=== PATIENT | female | born 1940 | race Caucasian/White ===

== ENCOUNTER 2017-02-20 19:07 | Inpatient (IN) | payer OTHER ==
--- NOTE | ~2017-02-20 | CN ---
Consultation Report [facility] [address] [place]. [address] NAME: ALENA GUERRIER : 39 STATUS : ADM IN PAT#: [id number] AGE: 76 ADM/REG DATE : 02/20/17 MR#: [id number] REPORT SERV DATE: 02/21/17 DICTATED BY: MAGALIE HALL JR. DATE: 02/21/17 REPORT STATUS : Draft TRANSCRIBED BY: MODJonn DATE: 02/21/17 CARDIOLOGY CONSULT DATE OF CONSULTATION: 02/21/2017 REASON FOR CONSULTATION: Regarding acute inferior ST-elevation NH in the setting of life- threatening hemorrhage with large pelvic hematoma, after presenting with a pulseless left leg status post old femoral-popliteal bypass. HISTORY OF PRESENT ILLNESS: A 76-year-old white female, former cigarette smoker with history of treated hypertension, hyperlipidemia, with a carotid disease and severe peripheral arterial disease status post remote synthetic graft left femoral-popliteal by Dr. Lopez Lange. She apparently presented to [facility] with a left leg with pain, numbness, and cold extremity. She was transferred downtown. Dr. Moreno attempted reopening the occluded fem-pop graft on the left. Right groin access. Difficult arterial access. Catheter was finally placed in the left superficial femoral artery and tPA infused. She was transferred back to the CVICU, but became hypotensive. Hematocrit dropped to 17, and she was taken back to the operating room to evacuate a large pelvic hematoma with treatment of the bleeding site with a covered stent in the left external iliac artery. Angioplasty was performed down the left lower extremity. She is currently pulseless in the left extremity. Earlier in the day on the monitor, ST changes were noted. Prior to her emergency reoperation, Cardiology consult was obtained. We requested an EKG on arrival back in the CVICU as well as a troponin. The troponin was 0.2 initially and the EKG showed changes of an acute inferior ST-elevation NH. She has had labile blood pressures with hypotension and hypertension, and has been alternating again with sinus rhythm and regular SVT. Available laboratory earlier included a sodium of 126, potassium of 3.2, chloride of 84, bicarb 19. BUN and creatinine 23 and 2.0, potassium 3.1, magnesium 1.4. ALLERGIES AND HOME MEDICATIONS: Reviewed. FAMILY HISTORY: Not obtainable. SOCIAL HISTORY: A remote history of cigarette smoking. No recreational drugs. does not know whether or not she has seen a manager water wastewater in the past. She is followed by Dr. Tian Calle for primary care. Portable echocardiogram bedside unit shows a normal size right ventricle with a normally pau interventricular septum, posterior wall appears to be hypokinetic initially. Formal echo ordered. Consultation Report [address] [place]. [address] NAME: ALENA GUERRIER : 39 STATUS : ADM IN [facility]#: [id number] AGE: 76 ADM/REG DATE : 02/20/17 MR#: [id number] REPORT SERV DATE: 02/21/17 DICTATED BY: MAGALIE HALL JR. DATE: 02/21/17 REPORT STATUS : Draft TRANSCRIBED BY: EMI DATE: 02/21/17 PHYSICAL EXAMINATION: Blood pressure 120/54, pulse alternating between 70 and 150. Intake exceeds output via significant amount over the last several hours. HEENT: No xanthelasma. NECK: No JVD at 30 degrees, no thyromegaly, no carotid bruit. LUNGS: Clear to auscultation and percussion. COR: No thrills, heaves, normal S1, S2. No gallop. No rub. No murmur. ABD: Soft, nontender, no hepatosplenomegaly, no mass. EXT: Pulseless left foot Doppler. Additional rhythm strip show AV dissociation with junctional escape. MS: Back without spine or costovertebral angle tenderness. NEURO: Symmetric findings. DISCUSSION: Acute inferior ST-elevation NH. In the setting of previous hemorrhagic shock. TPA, etc. She is not a candidate for invasive cardiac filling station laborer procedure at this point. Conservative treatment of acute inferior infarction recommended, watching for AV conduction abnormalities etc. Bedside echocardiogram. Serial cardiac enzymes and EKGs. Prognosis is dismal. Thank you for this consultation. ELLYN/EMI Magalie Hall Jr., M.D. / [id number] CC: Cally Kim Jr., M.D.
--- NOTE | ~2017-02-20 | OP ---
Record Of Operation [facility] [address] [place]. [address] NAME: ALENA GUERRIER : 39 STATUS : ADM IN PAT#: [id number] AGE: 76 ADM/REG DATE : 02/20/17 MR#: [id number] REPORT SERV DATE: 02/23/17 DICTATED BY: CORBY MORENO JR. DATE: 02/23/17 REPORT STATUS : Draft TRANSCRIBED BY: EMI DATE: 02/23/17 DATE OF PROCEDURE: 02/23/2017 PREOPERATIVE DIAGNOSIS: Gangrene of left leg. POSTOPERATIVE DIAGNOSIS: Gangrene of left leg. OPERATION: Left above-knee amputation. SURGEON: Corby Moreno M.D. HISTORY: This is a 76-year-old white female, who has been through a series of three operations over the last several days in order to evaluate and effort to try to salvage her left leg. The patient has had a number of cardiovascular issues including an inferior ME. The left lower leg has gangrenous changes below the knee. She was brought back today on a ventilator for this operation. PROCEDURE: The patient was placed on the operating room table. Endotracheal tube was connected to a ventilator. The left leg was prepped and draped in the usual sterile manner. Standard anterior and posterior flaps were drawn and cut with a knife. The underlying tissues were cut primarily with cautery. Although all tissues appeared to be alive, the tissues bled very little. The femoral-popliteal bypass graft in the left side was identified. It was obviously thrombosed. Where we went across the graft, there was a stent inside the graft. The femoral vein was suture ligated. The sciatic nerve was cut and injected with Marcaine. The periosteum was pushed off the bone. The bone was then cut with a power saw. The wound was thoroughly irrigated. The fascia was closed with 2-0 Vicryl. There was no need for drain. Skin was closed with a running 2-0 nylon. The patient tolerated the procedure remarkably well considering everything. Intraoperative blood loss was no more than 100 mL. There were no intraoperative complications. DF/EMI Corby Moreno Jr., M.D. / [id number] CC: Cally Kim Jr., M.D.
--- NOTE | ~2017-02-20 | OP ---
Record Of Operation [facility] [address] [place]. [address] NAME: ALENA GUERRIER : 39 STATUS : ADM IN PAT#: [id number] AGE: 76 ADM/REG DATE : 02/20/17 MR#: [id number] REPORT SERV DATE: 02/21/17 DICTATED BY: CORBY HUGGINS JR. DATE: 02/21/17 REPORT STATUS : Draft TRANSCRIBED BY: MODJonn DATE: 02/21/17 DATE OF PROCEDURE: 02/21/2017 PREOPERATIVE DIAGNOSIS: Profound ischemia of left leg, status post placement of tPA catheter last night. POSTOPERATIVE DIAGNOSIS: Profound ischemia of left leg, status post placement of tPA catheter last night. OPERATION: Left leg arteriogram through tPA catheter, attempted placement of cover stent via right common femoral artery approach, puncture of left common femoral artery using SonoSite machine, retrograde arteriogram, placement of 6 x 50 Viabahn covered stent across the left external iliac artery, dilation of left common iliac artery, left external iliac artery, left common femoral artery, left superficial femoral artery, and left popliteal artery using 5 x 150 balloon. SURGEON: Corby Huggins M.D. HISTORY: This lady had a tPA catheter placed last night. As the night went on, she developed a low blood pressure and an increasing pulse. Her hematocrit trended to drop. She had pain in her left lower quadrant compatible with a rectus sheath hematoma. She was brought back to the operating room this morning in hopes that we could place a covered stent to stop bleeding from the rectus sheath hematoma and also dilate the left leg. PROCEDURE IN DETAIL: The patient was placed on the operating room table. We started off with a MAC anesthetic. It was later changed to a general endotracheal anesthetic. Both groins and the left leg were prepped and draped in the usual sterile manner. I initially shot an arteriogram through the tPA catheter that went down the left leg. The distal popliteal artery appeared to be open. I then had difficulty pulling the tPA catheter out of the sheath in the right groin because it had to go through a pair of kissing proximal common iliac artery stents that had been previously placed by someone else. I then tried to use the UF catheter to get a wire to go down into the left iliac system and ultimately down the left leg. Because of the height of both kissing iliac stents, it became very difficult to get a sheath to track over a wire that was down into the left iliac system. After much frustration trying to get that to happen, I then decided to puncture the left common femoral artery with the SonoSite machine and place a wire going in a retrograde direction up toward the aorta. This was done rather easily. A V18 wire was then placed up into the aorta. We had done a previous arteriogram that had suggested a blush in the left lower quadrant. It appeared that this blush was coming off a branch of the left external iliac artery such as the inferior epigastric artery. I then placed a 6 x 50 Viabahn covered stent along the external iliac artery which seemed to help the rapidity of the blush showing up on arteriogram. Nevertheless, we did then figure out that the internal iliac artery on the left was feeding this blush also. We then went back over to the right side of the pelvis. I then did an arteriogram to look at the right internal iliac artery. It was basically occluded. Therefore, I was hesitant to cover up the origin of the left internal iliac artery for fear that the pelvis would have profound ischemia. I then dilated the stent in Record Of Operation [facility] [id number] [place]. [address] NAME: ALENA GUERRIER : 39 STATUS : ADM IN PAT#: [id number] AGE: 76 ADM/REG DATE : 02/20/17 MR#: [id number] REPORT SERV DATE: 02/21/17 DICTATED BY: CORBY HUGGINS JR. DATE: 02/21/17 REPORT STATUS : Draft TRANSCRIBED BY: MODL DATE: 02/21/17 the left common iliac artery, so that we could maybe go from the right iliac artery over to the left. We managed to finally get this done and slid a 6, 45 Terumo sheath over to the left external iliac artery. I then inserted a 5 x 150 balloon and dilated everything including the distal popliteal artery, the entire superficial femoral artery, the common femoral artery, and both the left common and external iliac arteries with the same 5 x 150 balloon. The followup arteriogram showed better flow down into the distal popliteal artery and filling out a peroneal artery which was really the only branch to the left foot. We then shot one more arteriogram to look at the blush coming from the left internal iliac artery. The blush only showed up as the contrast went down to very distal branches. I decided to leave a sheath in the left groin in case the left internal iliac artery had to be covered up later on this afternoon, depending on the patient's blood pressure and hematocrit levels. The sheath in the right groin was pulled and digital pressure was applied for 15 minutes. 2000 units of heparin was given during the case. The patient tolerated the procedure reasonably poorly considered the fact that her blood pressure remained down, she remained on pressors, she appeared to maybe have aspiration pneumonia, and had to be intubated during this case. She was taken back to SICU in critical condition. The estimated blood loss from my aspect of the case was not more than 200 mL. The was informed about all details of the case. DF/MODL Corby Huggins Jr., M.D. / [id number] CC: Corby Huggins Jr., M.D.
--- NOTE | ~2017-02-20 | OP ---
Record Of Operation [facility] [address] [place]. [address] NAME: ALENA GUERRIER : 39 STATUS : ADM IN [facility]#: [id number] AGE: 76 ADM/REG DATE : 02/20/17 MR#: [id number] REPORT SERV DATE: 02/21/17 DICTATED BY: CORBY MORENO JR. DATE: 02/20/17 REPORT STATUS : Draft TRANSCRIBED BY: MODJonn DATE: 02/20/17 DATE OF PROCEDURE: 02/20/2017 PREOPERATIVE DIAGNOSIS: Acute ischemia of left leg. POSTOPERATIVE DIAGNOSIS: Acute ischemia of left leg. OPERATION: Arteriographic puncture of right common femoral artery using SonoSite machine, flush aortogram, left leg arteriogram, placement of tPA catheter and left superficial femoral and popliteal arteries. SURGEON: Corby Moreno M.D. HISTORY: This is a 76-year-old white female with an extensive past medical history of PVD. She actually had a left femoral-popliteal bypass graft done with [place] by Dr. Lopez Lange some 15 years ago. She had an extensive operation done one year ago by Dr. Ender Ahmadi. The patient never came back for followup. She is only on aspirin as an anticoagulant. She said that she began having severe pain in her left leg at 4:00 p.m. on the day of admission. She was transferred in urgently. She had no Doppler flow in her left foot. She basically could not move her toes. She had much decreased sensation. DESCRIPTION OF PROCEDURE: The patient was placed on the operating room table. Both groins and the left leg were prepped and draped in the usual sterile manner. I had to mason hard with an ultrasound machine to find anything that pulsated in the right groin. On the medial side of the right groin, I finally found what appeared to be an artery. I then punctured this and managed to get a wire up into the aorta with difficulty. The wire did not want to go up the aorta because of extensive aortic disease in the distal aorta. I ultimately got the UF catheter to track the wire. I then did a flush aortogram. The distal aorta is opened. 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 The aorta is very irregular. Both common iliac arteries are irregular. Both external iliac arteries are irregular. She has bilateral iliac stents. I then pulled the UF catheter down the aortic bifurcation area. I then was able to feed a Glidewire down into the left groin. I then exchanged this for a Bard 2 catheter. I then naturally got a Glidewire to go into the left femoral-popliteal bypass graft. I then tracked all the way down through the graft to the distal popliteal artery. The femoral-popliteal bypass graft was completely occluded. The left common femoral artery was very diseased. The profunda femoral artery is open. There was a stent in the distal aspect of the femoral-popliteal bypass graft. There seems to be only one vessel runoff to the left foot. I then managed to run a 50 cm infusion length TPA catheter over the guidewire. The catheter was parked in the distal popliteal artery. The stylet was then inserted into the catheter. The distal catheter was then hooked up to TPA. The side port was hooked up to heparin. The catheter was sutured into place. The patient tolerated the procedure well and taken back to the recovery room in serious condition. There were no intraoperative complications. Estimated blood loss was negligible. Record Of Operation [address] [address] NAME: ALENA GUERRIER : 38 STATUS : ADM IN [facility]#: [id number] AGE: 76 ADM/REG DATE : 02/20/17 MR#: [id number] REPORT SERV DATE: 02/21/17 DICTATED BY: CORBY MORENO JR. DATE: 02/20/17 REPORT STATUS : Draft TRANSCRIBED BY: EMI DATE: 02/20/17 DF/EMI Corby Morneo Jr., M.D. / [id number] CC: Corby Moreno Jr., M.D.
--- NOTE | ~2017-02-20 | DS ---
Discharge Summary [facility] [address] [place]. [address] NAME: ALENA GUERRIER : 39 STATUS : DIS IN PAT#: [id number] AGE: 76 ADM/REG DATE : 02/20/17 MR#: [id number] REPORT SERV DATE: 03/15/17 DICTATED BY: CORBY MORENO JR. DATE: 03/14/17 REPORT STATUS : Draft TRANSCRIBED BY: EMI DATE: 03/14/17 Data Collection from hospitalization DISCHARGE DIAGNOSIS(ES): 1. Acute ischemia of the left leg. 2. Hypertension. 3. Peripheral vascular disease. 4. Hyperlipidemia. 5. Carotid artery disease. 6. Gastroesophageal reflux. 7. Acute inferior ST-elevation myocardial infarction. CONSULTATIONS: Elias Hall M.D.; Sky Caal M.D.; Jay Ramesh M.D. PROCEDURES PERFORMED: 1. Arteriographic puncture of right common femoral artery using SonoSite machine/aortogram, left leg arteriogram, placement of tPA catheter and left superficial femoral and popliteal artery, 02/20/2017. 2. Left leg arteriogram through tPA catheter, attempted placement of covered stent via right common femoral artery approach, puncture of left common femoral artery using SonoSite machine, retrograde arteriogram, placement of 6 x 50 Viabahn covered stent across the left external iliac artery, dilation of left common iliac artery, left external iliac artery, left common femoral artery, left superficial femoral artery, and left popliteal artery using 5 x 150 balloon, 02/21/2017. 3. Aortogram, placement of a covered stent across the proximal aspect of the right femoral- popliteal bypass graft (6 x 50), placement of covered stent over the origin of the left internal iliac artery (7 x 50), 02/21/2017. 4. Right chest tube placement, 02/22/2017. 5. 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 6. Carotid blood flow study, 02/22/2017. 7. Renal ultrasound, 02/22/2017. PATHOLOGY: Left lower extremity above the knee amputation -- severe peripheral vascular disease with accompanying ischemic damage. MEDICATIONS: Norvasc 5 mg daily as instructed; aspirin 162 mg every morning; Lipitor 40 mg at bedtime; Cordarone 200 mg once a day; Colace 100 mg at bedtime; Lovenox 30 mg subcutaneously every 24 hours; NovoLog injection insulin as instructed; Lopressor 25 mg twice a day; Protonix 40 mg before breakfast; Charles nasal spray, two sprays in each nostril three times a day; Desyrel 50 mg at bedtime; Venelex one application topically as needed; fentanyl 25-50 mg IV every three hours as needed; nitroglycerin 0.4 mg sublingually as needed; Zofran 4 mg IV every six hours as needed; Percocet 5/325 one to two tablets every four hours as needed; Charles nasal spray, one spray in each nostril as needed; Ditropan 5 mg twice a day, vitamin B12 at 2500 mcg daily, amiodarone 200 mg daily, Imdur 30 mg as instructed, Plavix 75 mg daily. CONDITION AT DISCHARGE: Stable. Discharge Summary [address] [address] NAME: ALENA GUERRIER : 39 STATUS : DIS IN PAT#: [id number] AGE: 76 ADM/REG DATE : 02/20/17 MR#: [id number] REPORT SERV DATE: 03/15/17 DICTATED BY: CORBY MORENO JR. DATE: 03/14/17 REPORT STATUS : Draft TRANSCRIBED BY: EMI DATE: 03/14/17 DISPOSITION: The patient was discharged to [facility] on a diabetic/mechanical soft diet with activities as instructed. She would follow up with Dr. Hall 03/30/2017. HOSPITAL COURSE: This is a 76-year-old female who has an extensive past medical history of peripheral vascular disease. She actually had left femoral-popliteal bypass grafts done with [employer] about 15 years ago. She had an extensive operation done one year ago by Dr. Ender Ahmadi. She never came back for followup. She is only on aspirin as an anticoagulant. She stated that she began to have severe pain in her left leg around 4 p.m. on the day of this admission. She was transferred in urgently. She was found to have no Doppler flow in her left foot. She basically could not move her toes. She had much decreased sensation. She was felt to have acute ischemia of the left leg and it was also felt that she would need to undergo surgical intervention. She was admitted to the hospital at this time for further evaluation and treatment. Upon admission, she was taken to the operating room where she underwent the above-mentioned procedure. She tolerated this well. There were no complications. The following day, she was seen by Dr. Elias Hall. He had been asked to see her regarding acute inferior ST- elevation myocardial infarction in the setting of life-threatening hemorrhage with large pelvic hematoma after presenting with a pulseless left leg, status post old femoral- popliteal bypass. Postoperatively, she had been transferred back to the Cardiovascular ICU, but she became hypotensive. Hematocrit dropped to 17. She was taken back to the operating room to evacuate a large pelvic hematoma with treatment of the bleeding sites with a covered stent in the left external iliac artery. Angioplasty was performed on the left lower extremity. She currently was pulseless in the left lower extremity. Earlier in the day on the monitor, her ST changes were noted. Prior to the emergent re-operation, a Cardiology consult was requested. An EKG was requested as well as a troponin. Initially, troponin was 0.2 and EKG showed changes of an acute inferior ST-elevation myocardial infarction. She had had labile blood pressures with hypotension and hypertension and had been alternating again with sinus rhythm and regular supraventricular tachycardia. Creatinine level was 2.0. She was felt to have had an acute inferior ST-elevation myocardial infarction in the setting of previous hemorrhagic shock, tPA, etc. She was not a candidate for invasive cardiac blood bank laboratory technician procedure at this point. Conservative treatment of acute inferior infarction was recommended, watching for AV conduction abnormalities, etc. Bedside echocardiogram would be performed. Serial cardiac enzymes and EKGs would be obtained. The prognosis was felt to be dismal. The patient underwent two surgical interventions within 12 hours. The patient was seen by Dr. Sky Caal. The patient was currently on an amiodarone drip. She had also developed acute blood loss anemia. She was on Dany-Synephrine currently for blood pressure control. She still had no pulses in the right lower extremity. On the , aspirin was added to her regimen. She was off pressors. Platelet count was 80,000. The patient's left leg has no perfusion below the knee. Plans were being made for left above knee amputation to be performed. She was seen in consultation by Dr. Jay Ramesh regarding acute kidney injury with low urine output. Creatinine had risen to 1.97 with potassium of 5.2. She had been initiated on a Bumex infusion due to her low urine output. Her overall prognosis was felt to be poor. She was felt to have multifactorial acute kidney injury, but primarily secondary to shock with creatinine 1.5 to a value of 1.97 with evidence of metabolic acidosis. Acute tubular necrosis likely complicated by SEVEN inhibitor affect possibly by contrast, but unsure if pelvic hematoma contributed with component of obstruction. He Discharge Summary [facility] [address] [place]. [address] NAME: ALENA GUERRIER : 39 STATUS : DIS IN PAT#: [id number] AGE: 76 ADM/REG DATE : 02/20/17 MR#: [id number] REPORT SERV DATE: 03/15/17 DICTATED BY: CORBY MORENO JR. DATE: 03/14/17 REPORT STATUS : Draft TRANSCRIBED BY: EMI DATE: 03/14/17 agreed with Bumex infusion and pressors and fluids. Dialysis therapy would be provided. The patient developed right pneumothorax on x-ray and ultrasound. Carotid blood flow study had been performed as well as a renal ultrasound. Dr. Sky Caal placed a right chest tube. On 02/23/2017, the patient was taken to the operating room where she underwent the above- mentioned procedure. She tolerated this well and there were no complications. Bumex infusion was continued. Creatinine had increased to 2.74 the following day. She had been extubated. Blood pressure and pulse were good. She seemed to be making progress. She denied any shortness of breath. Creatinine had increased to 2.82. Bumex was decreased. On 02/25/2017, she was in no acute distress. She denied any chest pain. Hydralazine was being given as needed. She remained in a normal sinus rhythm. She had brisk urine output. The left above knee amputation looked great. Platelet count was 74,000. On 02/27/2017, blood pressure was stable. She said she was feeling better. She had no chest pain. Her chest tube was in place. She continued to slowly improve. Chest x-ray showed improving pneumothorax. She did have a cough. She was evaluated by Physical Therapy. On 03/01/2017, she was awake and alert. She said she was breathing okay. Chest tube was removed. She had no cardiovascular complaints. Occupational Therapy also evaluated the patient. The next day, she did complain of some shortness of breath with exertion. She had no acute distress. She was not getting up much. Villatoro catheter was in place. She did complain of some wheezing. Speech-language pathology performed a bedside swallow study. There were no overt signs or symptoms of aspiration. Aspiration precautions were in place. On 03/03/2017, she continued to do well. Discharge instructions were given. Due to her improved and stable condition, she was discharged to [facility] with the above- stated instructions. Information collected by: Dominique Martel I submit the above information as my discharge summary. TG/MODL Corby Moreno Jr., M.D. / [id number] CC: Cally Kim Jr., M.D. Claude Galphin, M.D. [facility] Elias Hall Jr., M.D.
--- NOTE | ~2017-02-20 | CN ---
Consultation Report [facility] [address] [place]. [address] NAME: ALENA GUERRIER : 39 STATUS : ADM IN PAT#: [id number] AGE: 76 ADM/REG DATE : 02/20/17 MR#: [id number] REPORT SERV DATE: 02/21/17 DICTATED BY: MELVIN CAAL DATE: 02/21/17 REPORT STATUS : Draft TRANSCRIBED BY: MODL DATE: 02/21/17 DATE OF CONSULTATION: 02/21/2017 ADDENDUM: The patient had also developed acute blood loss anemia, status post stenting of right leg, thrombocytopenia, evacuation of hematoma, inferior wall RI. Was seen by Cardiology. Currently on Dany-Synephrine for blood pressure control. Creatinine was 1.56, BUN 22, potassium 3.7, magnesium 1.4 being replaced, and troponin 0.20. EKG showed inferior wall RI, evaluated by Cardiology. PLAN: Continue present support. Discussed with family. Still no pulses in the right lower extremity. Discussed with Dr. Moreno. LEONIDES/EMI Melvin Caal M.D. / [id number] CC: Corby Moreno Jr., M.D.
--- NOTE | ~2017-02-20 | CN ---
Consultation Report [address] [place]. [address] NAME: ALENA GUERRIER : 39 STATUS : ADM IN PAT#: [id number] AGE: 76 ADM/REG DATE : 02/20/17 MR#: [id number] REPORT SERV DATE: 02/22/17 DICTATED BY: MELVIN CAAL DATE: 02/21/17 REPORT STATUS : Draft TRANSCRIBED BY: MODL DATE: 02/21/17 CONSULTATION DATE OF CONSULTATION: 02/21/2017 CRITICAL CARE TIME: Greater than 45 minutes. HISTORY OF PRESENT ILLNESS: The patient is a 76-year-old white female, status post placement of stent, left femoral common external iliac artery, popliteal, SFA, and replacement covered stent. This is an effort to save the vasculature to her right leg. She had several trips to the ER for hematoma formation, which was evacuated done on Dany-Synephrine. She had developed SVT and inferior wall ID post procedure. Currently, on amiodarone drip. PAST MEDICAL HISTORY: Significant for previous carotid bilateral disease, peripheral vascular disease, previous stenting on the left side, former smoker. MEDICATIONS: Home medications as listed. ALLERGIES: TO IODINE, TAPE, AND LOPERAMIDE. REVIEW OF SYSTEMS: As noted above. PHYSICAL EXAMINATION: VITAL SIGNS: Blood pressure 90/72, pulse 85, sat 98%. GENERAL: Orally intubated. HEENT: Head was normocephalic. Eyelids were swollen. CARDIOVASCULAR EXAM: S1 and S2. No murmurs. ABDOMEN: Soft, relatively nontender. Large hematoma on right groin area and labia. Multiple urticarial areas over her abdomen, under her arms, neck, and back. LABORATORY DATA: PH was 7.15, pCO2 30, pO2 81, 100%. H and H 7.6 and 21. Later pH improved. Currently, on amiodarone 0.5. RP/NISHIL Melvin Caal M.D. / [id number] Consultation Report [address] [place]. [address] NAME: ALENA GUERRIER : 39 STATUS : ADM IN PAT#: [id number] AGE: 76 ADM/REG DATE : 02/20/17 MR#: [id number] REPORT SERV DATE: 02/22/17 DICTATED BY: MELVIN CAAL DATE: 02/21/17 REPORT STATUS : Draft TRANSCRIBED BY: EMI DATE: 02/21/17 CC: Corby Moreno Jr., M.D.
--- NOTE | ~2017-02-20 | CN ---
Consultation Report [facility] [address] [place]. [address] NAME: ALENA HERNANDEZ : 38 STATUS : ADM IN [facility]#: [id number] AGE: 76 ADM/REG DATE : 02/20/17 MR#: [id number] REPORT SERV DATE: 02/22/17 DICTATED BY: DAMARIS LOPEZ DATE: 02/22/17 REPORT STATUS : Draft TRANSCRIBED BY: MODL DATE: 02/22/17 NEPHROLOGY CONSULTATION DATE OF CONSULTATION: 02/22/2017 INDICATION FOR CONSULTATION: Acute kidney injury with low urine output. HISTORY OF PRESENT ILLNESS: Mrs. Hernandez is a 76-year-old female seen for acute kidney injury following admission for left lower extremity ischemia. She presented initially to [facility] and was transferred [place] for urgent surgical intervention. Vascular Surgery has intervened with multiple attempts to salvage her left lower extremity and preserve perfusion to her right lower extremity. She presently is on the ventilator and is requiring vasopressin for blood pressure support. Her hospitalization findings are significant for acute inferior ST-elevation SC and large pelvic hematoma, which required evacuation as well as acute kidney injury. Her creatinine was 0.83 in 2016 with a presenting creatinine of 1.56, rising to 1.97 with a potassium of 5.2. She is currently been initiated on a Bumex infusion due to her low urine output. She apparently is too unstable for invasive evaluation of her inferior SC and prognosis overall is poor. PAST MEDICAL HISTORY: Hypertension, hysterectomy, hemorrhoidectomy, lower extremity bypass surgery in both legs with known left femoral-popliteal bypass approximately in 2001, bilateral carotid artery stenoses, hysterectomy, dyslipidemia. SOCIAL HISTORY: Per chart, the patient is . Remote smoker. Remote alcohol use. No use of illicit drugs. FAMILY HISTORY: Per chart, father at age of fifty [age] from heart failure. Mother at age of sixty five from heart failure. Multiple siblings with peripheral vascular disease, diabetes, hypertension, and coronary artery disease. REVIEW OF SYSTEMS: Unable to obtain as the patient is on vent sedated. PHYSICAL EXAMINATION: GENERAL: Elderly female, on vent, eyes open. VITAL SIGNS: Blood pressure 124/61 on vasopressin, prior low pressure of 57/47, temperature 98.8, pulse 100, respiratory rate 22 per vent. HEENT: Eyes, no scleral icterus. Pupils reactive. Nares patent. Mouth with ET and OG tube in place. NECK: No thyromegaly, masses, unable to appreciate carotid bruits. CHEST/LUNGS: Lateral crackles. No pleural friction rub. No rhonchi. CARDIAC: Regular tachycardia, 1/6 systolic ejection murmur. No gallop or rub. ABDOMEN: Mildly distended. Bowel sounds decreased, unable to detect hepatosplenomegaly. BREAST: Exam not performed. Consultation Report [address] [place]. [address] NAME: ALENA HERNANDEZ : 39 STATUS : ADM IN PAT#: [id number] AGE: 76 ADM/REG DATE : 02/20/17 MR#: [id number] REPORT SERV DATE: 02/22/17 DICTATED BY: DAMARIS LOPEZ DATE: 02/22/17 REPORT STATUS : Draft TRANSCRIBED BY: EMI DATE: 02/22/17 PELVIC: Exam not performed. RECTAL: Exam not performed. EXTREMITIES: Left lower extremity with ischemic changes below knee, no pulse. Right foot unable to detect pulse well. No edema. DERMIS: No rash. No skin lesions. NEUROLOGIC: Unable to evaluate. MUSCULOSKELETAL: No deformity. IMPRESSION: 1. Acute kidney injury, multifactorial, but primarily secondary to shock with creatinine 1.45 to a value of 1.97 with evidence of metabolic acidosis. Acute tubular necrosis likely complicated by SEVEN inhibitor effect, possibly by contrast, unsure if pelvic hematoma contributed with a component of obstruction. 2. Acute inferior ST elevation myocardial infarction. 3. Acute left lower extremity ischemia. 4. Acute blood loss anemia. 5. Thrombocytopenia. 6. Peripheral vascular disease and remote left femoral-popliteal and right lower extremity intervention. 7. Status post evacuation of pelvic hematoma. 8. Bilateral carotid stenosis. 9. Remote hysterectomy. 10.Dyslipidemia. 11.History of hypertension. 12.Shock, likely secondary to cardiogenic shock from acute myocardial infarction and acute blood loss anemia. PLAN: 1. Concur with Bumex infusion. 2. Concur with pressors, fluids. 3. We will monitor. 4. Dialysis. CG/MODL Damaris Lopez M.D. / [id number] CC: Cally Kim Jr., M.D.
--- NOTE | ~2017-02-20 | OP ---
Record Of Operation [facility] [address] [place]. [address] NAME: ALENA GUERRIER : 39 STATUS : ADM IN PAT#: [id number] AGE: 76 ADM/REG DATE : 02/20/17 MR#: [id number] REPORT SERV DATE: 02/21/17 DICTATED BY: CORBY HUGGINS JR. DATE: 02/21/17 REPORT STATUS : Draft TRANSCRIBED BY: MODJonn DATE: 02/21/17 DATE OF PROCEDURE: 02/21/2017 PREOPERATIVE DIAGNOSIS: Postoperative bleeding from right groin. POSTOPERATIVE DIAGNOSIS: Postoperative bleeding from right groin. OPERATION: Aortogram, placement of covered stent across the proximal aspect of right femoral popliteal bypass graft (6 x 50), placement of covered stent over the origin of the left internal iliac artery (7 x 50). SURGEON: Corby Huggins M.D. HISTORY: This patient has had two operations in the last 12 hours. The second operation this morning was finished by pulling the sheath in the right groin. The patient went back to ICU. She had a drop in blood pressure and a drop in hematocrit. She had visible bleeding from the right groin. It was felt that she deserves another trip to the operating room. PROCEDURE: The patient was placed on the operating room table. Endotracheal tube was connected to a ventilator. Both groins were prepped and draped in the usual sterile manner. The sheath in the left groin was accessed. A UF catheter was then used to put a wire down into the right common femoral artery location. The wire went through the kissing stents in the iliac artery as well. We then did a series of arteriograms looking for blush. It appeared to be coming from a puncture hole in the proximal aspect of the right femoral- popliteal bypass graft. A 6 x 50 covered stent was then placed to preserve blood flow through the profunda femoral artery, but to deal with the blush. The blush went away with the placement of a covered stent. We then came back and did an arteriogram of the left iliac system. There was still a blush seen in the left lower quadrant. We then changed sheaths. We then put a 7 x 50 covered stent across the origin of the left internal iliac artery. We then dilated a stent maximally. Virtually, all of the collaterals involving the profunda went away. There was one very small collateral that remained. We felt that this was thrombosed on its own. Because the graft on the left had been punctured, we did not use any closure device. Digital pressure was applied for 20 minutes. At the end of the procedure, the blood pressure was better. The patient tolerated the procedure remarkably well considering everything. She was taken back to ICU in critical condition. DF/MODL Corby Huggins Jr., M.D. Record Of Operation [address] [address] NAME: ALENA GUERRIER : 38 STATUS : ADM IN [facility]#: [id number] AGE: 76 ADM/REG DATE : 02/20/17 MR#: [id number] REPORT SERV DATE: 02/21/17 DICTATED BY: CORBY HUGGINS JR. DATE: 02/21/17 REPORT STATUS : Draft TRANSCRIBED BY: MODL DATE: 02/21/17 / [id number] CC: Corby Huggins Jr., M.D.
--- NOTE | ~2017-02-20 | OP ---
Record Of Operation [facility] [address] [place]. [address] NAME: ALENA GUERRIER : 38 STATUS : ADM IN [facility]#: [id number] AGE: 76 ADM/REG DATE : 02/20/17 MR#: [id number] REPORT SERV DATE: 02/22/17 DICTATED BY: MELVIN CAAL DATE: 02/22/17 REPORT STATUS : Draft TRANSCRIBED BY: MODL DATE: 02/22/17 DATE OF PROCEDURE: 02/22/2017 TIME: 1250 hours. PROCEDURE: Right chest tube. INDICATION: Right pneumothorax as evidence on x-ray and ultrasound. DESCRIPTION OF PROCEDURE: Informed consent was obtained. Questions were answered. Risks and benefits were explained. Time-out was done. ChloraPrep scrub. Xylocaine 1% used for anesthesia. Scalpel incision, finger exploration, blunt dissection, #26 chest tube placed without difficulty in the pleural space, applied to suction. Chest x-ray was ordered. Sterile technique used throughout. LEONIDES/EMI Melvin Caal M.D. / [id number] CC: Cally Kim Jr., M.D.
[~2017-02-20 19:07] MED LIST: ASAB PO; CARDCD240 PO; CARTIA XT240 MG/24 PO; DITRO5 PO; FISH-EPA1000 MG PO; LIPITOR40 PO; LOP50 PO; LOTE20 PO; LOTENSIN HCT1 TA3 PO; MAGOX4 PO; PLAVIX PO; PRAVACHOL40 MG PO; REG PO; TRAZ50 PO; UROCIT-K 5540 MG PO; VITAMIN B-122500 MCG PO; VITAMIN B-122500 MCG SL; VITC500 PO
[2017-02-20 19:37] LABS: BASOPHILS 0.1 %; BASOPHILS ABSOLUTE 0.01 10/3/uL (0.0-0.16); EOSINOPHILS 0 %; HEMOGLOBIN 12.8 g/dL (12.0-16.0); IMMATURE GRANULOCYTES 0.3 %; IMMATURE GRANULOCYTES ABSOLUTE 0.03 10/3/uL (0.0-0.11); LYMPHOCYTES 9.5 %; LYMPHOCYTES ABSOLUTE 0.94 10/3/uL (0.67-4.30); MEAN CORPUS HGB CONC 36.4 g/dL (32.0-36.0); MEAN CORPUSCULAR HEMOGLOB 31.4 pg (26.0-34.0); MEAN CORPUSCULAR VOLUME 86.3 fL (80-100); MEAN PLATELET VOLUME 8.9 fL (9.2-13.0); MONOCYTES 4.3 %; MONOCYTES ABSOLUTE 0.43 10/3/uL (0.21-1.20); NEUTROPHILS 85.8 %; NEUTROPHILS ABSOLUTE 8.52 10/3/uL (2.02-8.40); PLATELET COUNT 185 10/3/uL (150-400); RBC DISTRIBUTION WIDTH 13.5 % (12.0-16.0); RED CELL COUNT 4.08 10/6/uL (4.0-5.6); WHITE BLOOD CELLS 9.9 10/3/uL (4.5-10.5)
[2017-02-20 19:39] LABS: HEMATOCRIT 35.2 % (36.0-48.0); MANUAL DIFF NO %
[2017-02-20 19:49] LABS: INTERNATIONAL NORMAL RATI 1.1 UNITS (-); PROTIME (NOT ORD) 13.7 SEC (12.0-14.5)
[2017-02-20 19:55] LABS: A/G RATIO 1.2 (0.7-1.9); ALBUMIN 3.9 G/DL (3.5-5.0); ALKALINE PHOSPHATASE 67 U/L (45-117); CO2 (CARBON DIOXIDE) 27 MMOL/L (24-34); GLOBULIN 3.3 G/DL (2.5-4.1); GLUCOSE, SERUM 110 MG/DL (60-99); POTASSIUM, SERUM 3.2 MMOL/L (3.5-5.3); SGOT(AST) 33 U/L (5-40); SGPT(ALT) 39 U/L (5-65); TOTAL PROTEIN 7.2 G/DL (6.0-8.5)
[2017-02-20 19:58] LABS: BUN (BLOOD UREA NITROGEN) 22 MG/DL (6-23); CHLORIDE, SERUM 82 MMOL/L (96-112); CREATININE 1.45 MG/DL (0.55-1.02); GFR AFRICAN AMERICAN 40 ML/MIN (>=60); GFR NON AFRICAN AMERICAN 35 ML/MIN (>=60); SODIUM, SERUM 125 MMOL/L (135-148); TOTAL BILIRUBIN 1.1 MG/DL (0-1.2)
[2017-02-20 23:03] LABS: HEMOGLOBIN 11.7 g/dL (12.0-16.0)
[2017-02-20 23:04] LABS: HEMATOCRIT 31.6 % (36.0-48.0)
[2017-02-20] MEDS ORDERED: CARTIA XT240 MG/24 PO ×2 (23:10→23:14)
[2017-02-20 23:11] LABS: FIBRINOGEN 460 MG/DL (230-462)
[2017-02-20 23:32] LABS: PARTIAL THROMBO TIME 143.7 SEC (22.5-37.2)
[2017-02-21 02:54] LABS: BASOPHILS 0.1 %; BASOPHILS ABSOLUTE 0.01 10/3/uL (0.0-0.16); EOSINOPHILS 0.1 %; EOSINOPHILS ABSOLUTE 0.01 10/3/uL (0.0-0.53); HEMATOCRIT 24.9 % (36.0-48.0); HEMOGLOBIN 8.9 g/dL (12.0-16.0); IMMATURE GRANULOCYTES 0.5 %; IMMATURE GRANULOCYTES ABSOLUTE 0.04 10/3/uL (0.0-0.11); LYMPHOCYTES 10.2 %; LYMPHOCYTES ABSOLUTE 0.89 10/3/uL (0.67-4.30); MEAN CORPUS HGB CONC 35.7 g/dL (32.0-36.0); MEAN CORPUSCULAR VOLUME 89.6 fL (80-100); MEAN PLATELET VOLUME 9.1 fL (9.2-13.0); MONOCYTES 2.1 %; MONOCYTES ABSOLUTE 0.18 10/3/uL (0.21-1.20); NEUTROPHILS ABSOLUTE 7.58 10/3/uL (2.02-8.40); PLATELET COUNT 188 10/3/uL (150-400); RBC DISTRIBUTION WIDTH 13.4 % (12.0-16.0); RED CELL COUNT 2.78 10/6/uL (4.0-5.6); WHITE BLOOD CELLS 8.7 10/3/uL (4.5-10.5)
[2017-02-21 02:55] LABS: MANUAL DIFF NO %
[2017-02-21 03:03] LABS: FIBRINOGEN 335 MG/DL (230-462)
[2017-02-21 03:06] LABS: BUN (BLOOD UREA NITROGEN) 23 MG/DL (6-23); CALCIUM, SERUM 7.3 MG/DL (8.5-10.4); CHLORIDE, SERUM 84 MMOL/L (96-112); CO2 (CARBON DIOXIDE) 19 MMOL/L (24-34); CREATININE 1.99 MG/DL (0.55-1.02); GFR AFRICAN AMERICAN 27 ML/MIN (>=60); GFR NON AFRICAN AMERICAN 24 ML/MIN (>=60); GLUCOSE, SERUM 307 MG/DL (60-99); POTASSIUM, SERUM 3.2 MMOL/L (3.5-5.3); SODIUM, SERUM 126 MMOL/L (135-148)
[2017-02-21 08:16] LABS: ASCORBIC ACID (UR NOT ORDER) NEG (NEG); BILIRUBIN, URINE NEGATIVE (NEG); KETONE, URINE TRACE MG/DL (NEG); LEUKOCYTE ESTERASE(NOT OR MOD (NEG); WBC (NOT ORDERED) (RFLEX) 84 (0-5)
[2017-02-21 11:42] LABS: ALLENS TEST Pos; BE (BASE EXCESS) -14.2 MEQ/L (0 +/- 2.5); CARBOXYHEMOGLOBIN 0.1 % (0-3); HCO3 (ACTUAL BICARBONATE) 16.6 MEQ/L (23-27); HEMOBLOGIN CONTENT 10.3 G/DL (12-16); INSTRUMENT SERIAL # 11843; METHEMOGLOBIN 0.6 % (0-3); MODE SIMV; O2 CONTENT 10.2 VOL% (18-24); OPERATOR ID 18642; PCO2 (CO2 TENSION) 65 MMHG (35-45); PO2 (O2 TENSION) 42 MMHG (79-93); SAMPLE Arterial; TIDAL VOLUME 500 ML; pH 7.03 (7.37-7.43)
[2017-02-21 14:09] LABS: BE (BASE EXCESS) -6.6 MEQ/L (0 +/- 2.5); CARBOXYHEMOGLOBIN 1.2 % (0-3); HCO3 (ACTUAL BICARBONATE) 19.5 MEQ/L (23-27); HEMOBLOGIN CONTENT 7.5 G/DL (12-16); INSTRUMENT SERIAL # 11843; MODE SIMV; O2 CONTENT 10.9 VOL% (18-24); OPERATOR ID 18642; PCO2 (CO2 TENSION) 42 MMHG (35-45); PO2 (O2 TENSION) 277 MMHG (79-93); PRESSURE SUPPORT 10 cm.H2O; SAMPLE Arterial; TIDAL VOLUME 500 ML; pH 7.29 (7.37-7.43)
[2017-02-21 14:20] LABS: BASOPHILS 0 %; EOSINOPHILS 0.2 %; EOSINOPHILS ABSOLUTE 0.02 10/3/uL (0.0-0.53); IMMATURE GRANULOCYTES 0.9 %; IMMATURE GRANULOCYTES ABSOLUTE 0.08 10/3/uL (0.0-0.11); LYMPHOCYTES 8.6 %; LYMPHOCYTES ABSOLUTE 0.75 10/3/uL (0.67-4.30); MEAN CORPUS HGB CONC 34.7 g/dL (32.0-36.0); MONOCYTES 7.7 %; MONOCYTES ABSOLUTE 0.67 10/3/uL (0.21-1.20); NEUTROPHILS 82.6 %; NEUTROPHILS ABSOLUTE 7.23 10/3/uL (2.02-8.40); RED CELL COUNT 2.48 10/6/uL (4.0-5.6); WHITE BLOOD CELLS 8.8 10/3/uL (4.5-10.5)
[2017-02-21 14:21] LABS: HEMATOCRIT 20.2 % (36.0-48.0); MEAN CORPUSCULAR HEMOGLOB 28.2 pg (26.0-34.0); MEAN CORPUSCULAR VOLUME 81.5 fL (80-100); RBC DISTRIBUTION WIDTH 16.9 % (12.0-16.0)
[2017-02-21 14:26] LABS: MANUAL DIFF NO %
[2017-02-21 14:37] LABS: BUN (BLOOD UREA NITROGEN) 22 MG/DL (6-23); CREATININE 1.56 MG/DL (0.55-1.02); GFR AFRICAN AMERICAN 37 ML/MIN (>=60); GFR NON AFRICAN AMERICAN 32 ML/MIN (>=60); POTASSIUM, SERUM 3.7 MMOL/L (3.5-5.3)
[2017-02-21 14:40] LABS: CALCIUM, SERUM 5.7 MG/DL (8.5-10.4); CHLORIDE, SERUM 98 MMOL/L (96-112); CO2 (CARBON DIOXIDE) 23 MMOL/L (24-34); GLUCOSE, SERUM 184 MG/DL (60-99); SODIUM, SERUM 135 MMOL/L (135-148)
[2017-02-21 14:42] LABS: RBC MORPHOLOGY NORM (NORMAL)
[2017-02-21 14:51] LABS: PLATELET COUNT 18 10/3/uL (150-400)
[2017-02-21 15:10] LABS: BASOPHILS 0.1 %; BASOPHILS ABSOLUTE 0.01 10/3/uL (0.0-0.16); EOSINOPHILS 0.3 %; EOSINOPHILS ABSOLUTE 0.04 10/3/uL (0.0-0.53); HEMATOCRIT 21.7 % (36.0-48.0); HEMOGLOBIN 7.6 g/dL (12.0-16.0); IMMATURE GRANULOCYTES ABSOLUTE 0.12 10/3/uL (0.0-0.11); LYMPHOCYTES 9.4 %; LYMPHOCYTES ABSOLUTE 1.18 10/3/uL (0.67-4.30); MEAN CORPUSCULAR HEMOGLOB 28.5 pg (26.0-34.0); MEAN CORPUSCULAR VOLUME 81.3 fL (80-100); MEAN PLATELET VOLUME 9.6 fL (9.2-13.0); MONOCYTES 12.1 %; MONOCYTES ABSOLUTE 1.51 10/3/uL (0.21-1.20); NEUTROPHILS 77.1 %; NEUTROPHILS ABSOLUTE 9.65 10/3/uL (2.02-8.40); RBC DISTRIBUTION WIDTH 16.9 % (12.0-16.0); RED CELL COUNT 2.67 10/6/uL (4.0-5.6)
[2017-02-21 15:17] LABS: PLATELET COUNT 21 10/3/uL (150-400); WHITE BLOOD CELLS 12.5 10/3/uL (4.5-10.5)
[2017-02-21 15:19] LABS: MANUAL DIFF NO %
[2017-02-21 15:35] LABS: RBC MORPHOLOGY NORM (NORMAL)
[2017-02-21 18:32] LABS: MEAN CORPUS HGB CONC 33.7 g/dL (32.0-36.0); MEAN CORPUSCULAR HEMOGLOB 27.5 pg (26.0-34.0); MEAN CORPUSCULAR VOLUME 81.7 fL (80-100); MEAN PLATELET VOLUME 9.1 fL (9.2-13.0); RBC DISTRIBUTION WIDTH 17.3 % (12.0-16.0); WHITE BLOOD CELLS 10.8 10/3/uL (4.5-10.5)
[2017-02-21 18:44] LABS: HEMATOCRIT 19.6 % (36.0-48.0); HEMOGLOBIN 6.6 g/dL (12.0-16.0); PLATELET COUNT 131 10/3/uL (150-400)
[2017-02-21 18:47] LABS: MANUAL DIFF YES %
[2017-02-21 19:08] LABS: BUN (BLOOD UREA NITROGEN) 23 MG/DL (6-23); CHLORIDE, SERUM 99 MMOL/L (96-112); CREATININE 1.73 MG/DL (0.55-1.02); GFR AFRICAN AMERICAN 32 ML/MIN (>=60); GFR NON AFRICAN AMERICAN 28 ML/MIN (>=60); SODIUM, SERUM 133 MMOL/L (135-148)
[2017-02-21 19:13] LABS: CALCIUM, SERUM 6.3 MG/DL (8.5-10.4); CO2 (CARBON DIOXIDE) 14 MMOL/L (24-34); GLUCOSE, SERUM 306 MG/DL (60-99); POTASSIUM, SERUM 4.7 MMOL/L (3.5-5.3)
[2017-02-21 20:06] LABS: BAND NEUTROPHILS 18 %; LYMPHOCYTES 10 %; LYMPHOCYTES ABSOLUTE (CALC) 1.08 10/3/uL (0.67-4.30); MONOCYTES 1 %; MONOCYTES ABSOLUTE (CALC) 0.11 10/3/uL (0.21-1.20); NEUTROPHILS ABSOLUTE (CALC) 9.61 10/3/uL (2.02-8.40); SEGMENTED NEUTROPHIL (0) 71 %; TOTAL NUCLEATED CELLS 100
[2017-02-21 20:07] LABS: ANISOCYTOSIS 1+ (5-10/OIF) (0-5/OIF); PLATELET ESTIMATE SLT DEC (ADEQUATE)
[2017-02-21 22:45] LABS: MEAN CORPUS HGB CONC 34.9 g/dL (32.0-36.0); MEAN CORPUSCULAR HEMOGLOB 29.5 pg (26.0-34.0); MEAN PLATELET VOLUME 9.8 fL (9.2-13.0); PLATELET COUNT 92 10/3/uL (150-400); WHITE BLOOD CELLS 11.9 10/3/uL (4.5-10.5)
[2017-02-21 22:47] LABS: HEMATOCRIT 24.9 % (36.0-48.0); HEMOGLOBIN 8.7 g/dL (12.0-16.0); MANUAL DIFF YES %; MEAN CORPUSCULAR VOLUME 84.4 fL (80-100); RED CELL COUNT 2.95 10/6/uL (4.0-5.6)
[2017-02-21 22:56] LABS: BAND NEUTROPHILS 25 %; IMMATURE GRANS ABSOLUTE (CALC) 0.24 10/3/uL (0.0-0.11); LYMPHOCYTES 14 %; LYMPHOCYTES ABSOLUTE (CALC) 1.67 10/3/uL (0.67-4.30); METAMYELOCYTES 2 %; SEGMENTED NEUTROPHIL (0) 59 %; TOTAL NUCLEATED CELLS 100; TOXIC GRANULATION 1+
[2017-02-21 22:57] LABS: PLATELET ESTIMATE SLT DEC (ADEQUATE); RBC MORPHOLOGY NORM (NORMAL)
[2017-02-22 02:42] LABS: HEMATOCRIT 26.5 % (36.0-48.0); HEMOGLOBIN 9.3 g/dL (12.0-16.0); MEAN CORPUS HGB CONC 35.1 g/dL (32.0-36.0); MEAN CORPUSCULAR HEMOGLOB 29.2 pg (26.0-34.0); MEAN CORPUSCULAR VOLUME 83.1 fL (80-100); MEAN PLATELET VOLUME 9.8 fL (9.2-13.0); PLATELET COUNT 75 10/3/uL (150-400); RBC DISTRIBUTION WIDTH 17.2 % (12.0-16.0); RED CELL COUNT 3.19 10/6/uL (4.0-5.6); WHITE BLOOD CELLS 11.1 10/3/uL (4.5-10.5)
[2017-02-22 02:45] LABS: MANUAL DIFF YES %
[2017-02-22 02:58] LABS: ANISOCYTOSIS 1+ (5-10/OIF) (0-5/OIF); BAND NEUTROPHILS 35 %; IMMATURE GRANS ABSOLUTE (CALC) 0.22 10/3/uL (0.0-0.11); LYMPHOCYTES 11 %; LYMPHOCYTES ABSOLUTE (CALC) 1.22 10/3/uL (0.67-4.30); METAMYELOCYTES 2 %; MONOCYTES 3 %; MONOCYTES ABSOLUTE (CALC) 0.33 10/3/uL (0.21-1.20); NEUTROPHILS ABSOLUTE (CALC) 9.32 10/3/uL (2.02-8.40); PLATELET ESTIMATE DEC (ADEQUATE); SEGMENTED NEUTROPHIL (0) 49 %; TOTAL NUCLEATED CELLS 100
[2017-02-22 03:08] LABS: BUN (BLOOD UREA NITROGEN) 27 MG/DL (6-23); CHLORIDE, SERUM 102 MMOL/L (96-112); CKMB INDEX (NOT ORD) 2.5; CO2 (CARBON DIOXIDE) 17 MMOL/L (24-34); CPK 1135 U/L (0-200); CREATININE 1.97 MG/DL (0.55-1.02); GFR AFRICAN AMERICAN 28 ML/MIN (>=60); GFR NON AFRICAN AMERICAN 24 ML/MIN (>=60); GLUCOSE, SERUM 211 MG/DL (60-99); POTASSIUM, SERUM 5.2 MMOL/L (3.5-5.3); SODIUM, SERUM 135 MMOL/L (135-148); TROPONIN I 0.44 NG/ML (<0.05)
[2017-02-22 04:33] LABS: BE (BASE EXCESS) -7.6 MEQ/L (0 +/- 2.5); CARBOXYHEMOGLOBIN 0.3 % (0-3); HCO3 (ACTUAL BICARBONATE) 15.3 MEQ/L (23-27); HEMOBLOGIN CONTENT 9.7 G/DL (12-16); INSTRUMENT SERIAL # 11843; METHEMOGLOBIN 0.5 % (0-3); MODE CMV; O2 CONTENT 13.4 VOL% (18-24); OPERATOR ID 32193; PCO2 (CO2 TENSION) 24 MMHG (35-45); PO2 (O2 TENSION) 109 MMHG (79-93); SAMPLE Arterial; TIDAL VOLUME 500 ML; pH 7.43 (7.37-7.43)
[2017-02-22 06:07] LABS: SGOT(AST) 4856 U/L (5-40); SGPT(ALT) 2417 U/L (5-65)
[2017-02-22 06:10] LABS: A/G RATIO 1.5 (0.7-1.9); ALBUMIN 2.7 G/DL (3.5-5.0); ALKALINE PHOSPHATASE 54 U/L (45-117); GLOBULIN 1.8 G/DL (2.5-4.1); TOTAL BILIRUBIN 0.6 MG/DL (0-1.2); TOTAL PROTEIN 4.5 G/DL (6.0-8.5)
[2017-02-22 06:52] LABS: HEMOGLOBIN 8.9 g/dL (12.0-16.0); MANUAL DIFF YES %; MEAN CORPUS HGB CONC 35.6 g/dL (32.0-36.0); MEAN CORPUSCULAR HEMOGLOB 29.1 pg (26.0-34.0); MEAN CORPUSCULAR VOLUME 81.7 fL (80-100); MEAN PLATELET VOLUME 10.3 fL (9.2-13.0); PLATELET COUNT 79 10/3/uL (150-400); RBC DISTRIBUTION WIDTH 17.3 % (12.0-16.0); RED CELL COUNT 3.06 10/6/uL (4.0-5.6); WHITE BLOOD CELLS 15.1 10/3/uL (4.5-10.5)
[2017-02-22 07:24] LABS: LYMPHOCYTES 23 %; LYMPHOCYTES ABSOLUTE (CALC) 3.47 10/3/uL (0.67-4.30); MONOCYTES 3 %; MONOCYTES ABSOLUTE (CALC) 0.45 10/3/uL (0.21-1.20); NEUTROPHILS ABSOLUTE (CALC) 11.17 10/3/uL (2.02-8.40); SEGMENTED NEUTROPHIL (0) 74 %; TOTAL NUCLEATED CELLS 100
[2017-02-22 07:25] LABS: ANISOCYTOSIS 1+ (5-10/OIF) (0-5/OIF); PLATELET ESTIMATE DEC (ADEQUATE)
[2017-02-22 07:27] LABS: BURR CELLS 1+ (3-10/OIF) (0-2/OIF)
[2017-02-22 07:28] LABS: POLYCHROMASIA 1+ (2-5/OIF) (0-1/OIF)
[2017-02-22 07:33] LABS: BUN (BLOOD UREA NITROGEN) 26 MG/DL (6-23); CHLORIDE, SERUM 102 MMOL/L (96-112); CO2 (CARBON DIOXIDE) 16 MMOL/L (24-34); CREATININE 1.95 MG/DL (0.55-1.02); GFR AFRICAN AMERICAN 28 ML/MIN (>=60); GFR NON AFRICAN AMERICAN 24 ML/MIN (>=60); POTASSIUM, SERUM 5.3 MMOL/L (3.5-5.3); SODIUM, SERUM 133 MMOL/L (135-148)
[2017-02-22 07:35] LABS: CALCIUM, SERUM 6.3 MG/DL (8.5-10.4); GLUCOSE, SERUM 164 MG/DL (60-99)
[2017-02-22 12:35] LABS: BUN (BLOOD UREA NITROGEN) 33 MG/DL (6-23); CALCIUM, SERUM 6.1 MG/DL (8.5-10.4); CHLORIDE, SERUM 99 MMOL/L (96-112); CO2 (CARBON DIOXIDE) 18 MMOL/L (24-34); CREATININE 2.18 MG/DL (0.55-1.02); GFR AFRICAN AMERICAN 25 ML/MIN (>=60); GFR NON AFRICAN AMERICAN 21 ML/MIN (>=60); GLUCOSE, SERUM 156 MG/DL (60-99); POTASSIUM, SERUM 4.9 MMOL/L (3.5-5.3); SODIUM, SERUM 132 MMOL/L (135-148)
[2017-02-22 12:52] LABS: BASOPHILS 0.1 %; BASOPHILS ABSOLUTE 0.01 10/3/uL (0.0-0.16); EOSINOPHILS 0.4 %; EOSINOPHILS ABSOLUTE 0.07 10/3/uL (0.0-0.53); HEMATOCRIT 22.7 % (36.0-48.0); HEMOGLOBIN 8.1 g/dL (12.0-16.0); IMMATURE GRANULOCYTES 1.5 %; IMMATURE GRANULOCYTES ABSOLUTE 0.25 10/3/uL (0.0-0.11); LYMPHOCYTES ABSOLUTE 1.16 10/3/uL (0.67-4.30); MEAN CORPUS HGB CONC 35.7 g/dL (32.0-36.0); MEAN CORPUSCULAR HEMOGLOB 28.6 pg (26.0-34.0); MEAN CORPUSCULAR VOLUME 80.2 fL (80-100); MONOCYTES 7.1 %; MONOCYTES ABSOLUTE 1.17 10/3/uL (0.21-1.20); NEUTROPHILS 83.9 %; NEUTROPHILS ABSOLUTE 13.83 10/3/uL (2.02-8.40); NUCLEATED RED BLOOD CELLS 0.2 /100WBC (0-0); PLATELET COUNT 80 10/3/uL (150-400); RBC DISTRIBUTION WIDTH 17.6 % (12.0-16.0); RED CELL COUNT 2.83 10/6/uL (4.0-5.6); WHITE BLOOD CELLS 16.5 10/3/uL (4.5-10.5)
[2017-02-22 12:53] LABS: MANUAL DIFF NO %
[2017-02-22 19:01] LABS: ALBUMIN 2.7 G/DL (3.5-5.0); BUN (BLOOD UREA NITROGEN) 33 MG/DL (6-23); CHLORIDE, SERUM 99 MMOL/L (96-112); CO2 (CARBON DIOXIDE) 21 MMOL/L (24-34); CREATININE 2.48 MG/DL (0.55-1.02); GFR AFRICAN AMERICAN 21 ML/MIN (>=60); GFR NON AFRICAN AMERICAN 18 ML/MIN (>=60); GLUCOSE, SERUM 151 MG/DL (60-99); POTASSIUM, SERUM 4.7 MMOL/L (3.5-5.3); SODIUM, SERUM 134 MMOL/L (135-148)
[2017-02-22 19:03] LABS: CALCIUM, SERUM 6.2 MG/DL (8.5-10.4); PHOSPHORUS, SERUM 4.7 MG/DL (2.5-4.5)
[2017-02-23 03:27] LABS: HEMATOCRIT 21.1 % (36.0-48.0); HEMOGLOBIN 7.5 g/dL (12.0-16.0); MEAN CORPUS HGB CONC 35.5 g/dL (32.0-36.0); MEAN CORPUSCULAR HEMOGLOB 29.5 pg (26.0-34.0); MEAN PLATELET VOLUME 9.8 fL (9.2-13.0); PLATELET COUNT 73 10/3/uL (150-400); RBC DISTRIBUTION WIDTH 17.6 % (12.0-16.0); RED CELL COUNT 2.54 10/6/uL (4.0-5.6); WHITE BLOOD CELLS 20.5 10/3/uL (4.5-10.5)
[2017-02-23 03:28] LABS: MANUAL DIFF YES %; MEAN CORPUSCULAR VOLUME 83.1 fL (80-100)
[2017-02-23 03:33] LABS: BE (BASE EXCESS) -3.7 MEQ/L (0 +/- 2.5); CARBOXYHEMOGLOBIN 0.3 % (0-3); HCO3 (ACTUAL BICARBONATE) 19.3 MEQ/L (23-27); INSTRUMENT SERIAL # 11843; METHEMOGLOBIN 0.9 % (0-3); MODE CMV; O2 CONTENT 10.9 VOL% (18-24); OPERATOR ID 23712; PCO2 (CO2 TENSION) 27 MMHG (35-45); PO2 (O2 TENSION) 93 MMHG (79-93); SAMPLE Arterial; TIDAL VOLUME 500 ML; pH 7.47 (7.37-7.43)
[2017-02-23 03:46] LABS: ANISOCYTOSIS 1+ (5-10/OIF) (0-5/OIF); BAND NEUTROPHILS 8 %; IMMATURE GRANS ABSOLUTE (CALC) 0.21 10/3/uL (0.0-0.11); LYMPHOCYTES 5 %; LYMPHOCYTES ABSOLUTE (CALC) 1.03 10/3/uL (0.67-4.30); METAMYELOCYTES 1 %; MONOCYTES 6 %; MONOCYTES ABSOLUTE (CALC) 1.23 10/3/uL (0.21-1.20); NEUTROPHILS ABSOLUTE (CALC) 18.04 10/3/uL (2.02-8.40); PLATELET ESTIMATE DEC (ADEQUATE); RBC MORPHOLOGY ABN (NORMAL); SEGMENTED NEUTROPHIL (0) 80 %; TOTAL NUCLEATED CELLS 100
[2017-02-23 03:57] LABS: A/G RATIO 1.1 (0.7-1.9); ALBUMIN 2.6 G/DL (3.5-5.0); ALKALINE PHOSPHATASE 73 U/L (45-117); BUN (BLOOD UREA NITROGEN) 37 MG/DL (6-23); CHLORIDE, SERUM 97 MMOL/L (96-112); CO2 (CARBON DIOXIDE) 22 MMOL/L (24-34); CREATININE 2.74 MG/DL (0.55-1.02); GFR AFRICAN AMERICAN 19 ML/MIN (>=60); GFR NON AFRICAN AMERICAN 16 ML/MIN (>=60); GLOBULIN 2.3 G/DL (2.5-4.1); GLUCOSE, SERUM 133 MG/DL (60-99); PHOSPHORUS, SERUM 5.5 MG/DL (2.5-4.5); POTASSIUM, SERUM 4.7 MMOL/L (3.5-5.3); SGPT(ALT) 1291 U/L (5-65); SODIUM, SERUM 133 MMOL/L (135-148); TOTAL BILIRUBIN 0.5 MG/DL (0-1.2); TOTAL PROTEIN 4.9 G/DL (6.0-8.5)
[2017-02-23 03:58] LABS: SGOT(AST) 2970 U/L (5-40)
[2017-02-23 17:57] LABS: MEAN CORPUS HGB CONC 35.5 g/dL (32.0-36.0); MEAN CORPUSCULAR HEMOGLOB 28.2 pg (26.0-34.0); MEAN PLATELET VOLUME 9.9 fL (9.2-13.0); NUCLEATED RED BLOOD CELLS 0.5 /100WBC (0-0); PLATELET COUNT 75 10/3/uL (150-400); RBC DISTRIBUTION WIDTH 19.1 % (12.0-16.0); WHITE BLOOD CELLS 24.2 10/3/uL (4.5-10.5)
[2017-02-23 18:00] LABS: HEMATOCRIT 25.6 % (36.0-48.0); HEMOGLOBIN 9.1 g/dL (12.0-16.0); MANUAL DIFF YES %; MEAN CORPUSCULAR VOLUME 79.3 fL (80-100); RED CELL COUNT 3.23 10/6/uL (4.0-5.6)
[2017-02-23 18:04] LABS: CHLORIDE, SERUM 97 MMOL/L (96-112); CO2 (CARBON DIOXIDE) 21 MMOL/L (24-34); GFR AFRICAN AMERICAN 17 ML/MIN (>=60); GFR NON AFRICAN AMERICAN 15 ML/MIN (>=60); GLUCOSE, SERUM 114 MG/DL (60-99); POTASSIUM, SERUM 4.2 MMOL/L (3.5-5.3); SODIUM, SERUM 132 MMOL/L (135-148)
[2017-02-23 18:05] LABS: BUN (BLOOD UREA NITROGEN) 41 MG/DL (6-23)
[2017-02-23 18:46] LABS: ANISOCYTOSIS 1+ (5-10/OIF) (0-5/OIF); BAND NEUTROPHILS 13 %; EOSINOPHILS 1 %; EOSINOPHILS ABSOLUTE (CALC) 0.24 10/3/uL (0.0-0.53); IMMATURE GRANS ABSOLUTE (CALC) 0.24 10/3/uL (0.0-0.11); LYMPHOCYTES 4 %; LYMPHOCYTES ABSOLUTE (CALC) 0.97 10/3/uL (0.67-4.30); METAMYELOCYTES 1 %; MONOCYTES 6 %; MONOCYTES ABSOLUTE (CALC) 1.45 10/3/uL (0.21-1.20); PLATELET ESTIMATE DEC (ADEQUATE); SEGMENTED NEUTROPHIL (0) 75 %; TOTAL NUCLEATED CELLS 100
[2017-02-24 03:27] LABS: HEMOGLOBIN 8.7 g/dL (12.0-16.0); MEAN CORPUS HGB CONC 34.8 g/dL (32.0-36.0); MEAN CORPUSCULAR HEMOGLOB 28.1 pg (26.0-34.0); MEAN CORPUSCULAR VOLUME 80.6 fL (80-100); MEAN PLATELET VOLUME 9.6 fL (9.2-13.0); PLATELET COUNT 59 10/3/uL (150-400); RBC DISTRIBUTION WIDTH 19.3 % (12.0-16.0); WHITE BLOOD CELLS 19.9 10/3/uL (4.5-10.5)
[2017-02-24 03:28] LABS: MANUAL DIFF YES %
[2017-02-24 03:48] LABS: ALBUMIN 2.6 G/DL (3.5-5.0); ALKALINE PHOSPHATASE 86 U/L (45-117); ANISOCYTOSIS 1+ (5-10/OIF) (0-5/OIF); BAND NEUTROPHILS 17 %; BUN (BLOOD UREA NITROGEN) 42 MG/DL (6-23); CHLORIDE, SERUM 97 MMOL/L (96-112); CO2 (CARBON DIOXIDE) 24 MMOL/L (24-34); CREATININE 2.82 MG/DL (0.55-1.02); GFR AFRICAN AMERICAN 18 ML/MIN (>=60); GFR NON AFRICAN AMERICAN 16 ML/MIN (>=60); GLOBULIN 2.6 G/DL (2.5-4.1); GLUCOSE, SERUM 111 MG/DL (60-99); LYMPHOCYTES 9 %; LYMPHOCYTES ABSOLUTE (CALC) 1.79 10/3/uL (0.67-4.30); MONOCYTES 2 %; MYELOCYTES 1 %; NEUTROPHILS ABSOLUTE (CALC) 17.51 10/3/uL (2.02-8.40); PHOSPHORUS, SERUM 6.2 MG/DL (2.5-4.5); PLATELET ESTIMATE DEC (ADEQUATE); POTASSIUM, SERUM 4.2 MMOL/L (3.5-5.3); RBC MORPHOLOGY ABN (NORMAL); SEGMENTED NEUTROPHIL (0) 71 %; SGOT(AST) 1351 U/L (5-40); SGPT(ALT) 433 U/L (5-65); SODIUM, SERUM 134 MMOL/L (135-148); TOTAL BILIRUBIN 0.5 MG/DL (0-1.2); TOTAL NUCLEATED CELLS 100; TOTAL PROTEIN 5.2 G/DL (6.0-8.5)
[2017-02-24 05:20] LABS: CK-MB 129.2 NG/ML
[2017-02-24 05:34] LABS: TROPONIN I 1.34 NG/ML (<0.05)
[2017-02-24 06:16] LABS: CKMB INDEX (NOT ORD) 0.4
[2017-02-24 19:52] LABS: PHOSPHORUS, SERUM 5.4 MG/DL (2.5-4.5); POTASSIUM, SERUM 3.8 MMOL/L (3.5-5.3)
[2017-02-25 03:52] LABS: BASOPHILS 0.1 %; BASOPHILS ABSOLUTE 0.03 10/3/uL (0.0-0.16); EOSINOPHILS 0.2 %; EOSINOPHILS ABSOLUTE 0.05 10/3/uL (0.0-0.53); HEMOGLOBIN 8.1 g/dL (12.0-16.0); IMMATURE GRANULOCYTES 2.3 %; IMMATURE GRANULOCYTES ABSOLUTE 0.48 10/3/uL (0.0-0.11); LYMPHOCYTES 6.6 %; MANUAL DIFF NO %; MEAN CORPUS HGB CONC 33.8 g/dL (32.0-36.0); MEAN PLATELET VOLUME 10.5 fL (9.2-13.0); MONOCYTES 9.7 %; MONOCYTES ABSOLUTE 2.04 10/3/uL (0.21-1.20); NEUTROPHILS 81.1 %; PLATELET COUNT 74 10/3/uL (150-400); RBC DISTRIBUTION WIDTH 18.8 % (12.0-16.0); RED CELL COUNT 2.89 10/6/uL (4.0-5.6); WHITE BLOOD CELLS 21.1 10/3/uL (4.5-10.5)
[2017-02-25 04:17] LABS: ANISOCYTOSIS 1+ (5-10/OIF) (0-5/OIF); PLATELET ESTIMATE DEC (ADEQUATE); RBC MORPHOLOGY NORM (NORMAL)
[2017-02-25 04:27] LABS: A/G RATIO 0.9 (0.7-1.9); ALBUMIN 2.6 G/DL (3.5-5.0); CHLORIDE, SERUM 94 MMOL/L (96-112); CK-MB 57.6 NG/ML; CREATININE 2.74 MG/DL (0.55-1.02); GFR AFRICAN AMERICAN 19 ML/MIN (>=60); GFR NON AFRICAN AMERICAN 16 ML/MIN (>=60); GLUCOSE, SERUM 89 MG/DL (60-99); PHOSPHORUS, SERUM 6.2 MG/DL (2.5-4.5); POTASSIUM, SERUM 4.5 MMOL/L (3.5-5.3); SGOT(AST) 822 U/L (5-40); SGPT(ALT) 214 U/L (5-65); SODIUM, SERUM 134 MMOL/L (135-148); TOTAL BILIRUBIN 0.8 MG/DL (0-1.2); TOTAL PROTEIN 5.6 G/DL (6.0-8.5)
[2017-02-25 04:28] LABS: ALKALINE PHOSPHATASE 117 U/L (45-117); BUN (BLOOD UREA NITROGEN) 47 MG/DL (6-23); CALCIUM, SERUM 6.5 MG/DL (8.5-10.4); CO2 (CARBON DIOXIDE) 29 MMOL/L (24-34)
[2017-02-25 04:29] LABS: TROPONIN I 0.79 NG/ML (<0.05)
[2017-02-25 04:48] LABS: CKMB INDEX (NOT ORD) 0.3; CPK 17787 U/L (0-200)
[2017-02-25 17:31] LABS: POTASSIUM, SERUM 3.8 MMOL/L (3.5-5.3)
[2017-02-26 03:57] LABS: HEMATOCRIT 24.9 % (36.0-48.0); HEMOGLOBIN 8.1 g/dL (12.0-16.0); MEAN CORPUS HGB CONC 32.5 g/dL (32.0-36.0); MEAN CORPUSCULAR HEMOGLOB 27.8 pg (26.0-34.0); MEAN CORPUSCULAR VOLUME 85.6 fL (80-100); MEAN PLATELET VOLUME 10.5 fL (9.2-13.0); NUCLEATED RED BLOOD CELLS 0.8 /100WBC (0-0); PLATELET COUNT 123 10/3/uL (150-400); RBC DISTRIBUTION WIDTH 18.7 % (12.0-16.0); RED CELL COUNT 2.91 10/6/uL (4.0-5.6); WHITE BLOOD CELLS 23.1 10/3/uL (4.5-10.5)
[2017-02-26 03:58] LABS: MANUAL DIFF YES %
[2017-02-26 04:02] LABS: A/G RATIO 0.8 (0.7-1.9); ALBUMIN 2.6 G/DL (3.5-5.0); CHLORIDE, SERUM 90 MMOL/L (96-112); CO2 (CARBON DIOXIDE) 31 MMOL/L (24-34); CREATININE 2.76 MG/DL (0.55-1.02); GFR AFRICAN AMERICAN 18 ML/MIN (>=60); GFR NON AFRICAN AMERICAN 16 ML/MIN (>=60); GLOBULIN 3.1 G/DL (2.5-4.1); GLUCOSE, SERUM 87 MG/DL (60-99); SGOT(AST) 778 U/L (5-40); SGPT(ALT) 228 U/L (5-65); SODIUM, SERUM 134 MMOL/L (135-148); TOTAL BILIRUBIN 1.1 MG/DL (0-1.2); TOTAL PROTEIN 5.7 G/DL (6.0-8.5)
[2017-02-26 04:03] LABS: ALKALINE PHOSPHATASE 140 U/L (45-117); BUN (BLOOD UREA NITROGEN) 54 MG/DL (6-23); CALCIUM, SERUM 7.5 MG/DL (8.5-10.4); CPK 11849 U/L (0-200); PHOSPHORUS, SERUM 7.2 MG/DL (2.5-4.5)
[2017-02-26 04:16] LABS: ANISOCYTOSIS 1+ (5-10/OIF) (0-5/OIF); BAND NEUTROPHILS 1 %; EOSINOPHILS 1 %; EOSINOPHILS ABSOLUTE (CALC) 0.23 10/3/uL (0.0-0.53); IMMATURE GRANS ABSOLUTE (CALC) 0.69 10/3/uL (0.0-0.11); LYMPHOCYTES 4 %; LYMPHOCYTES ABSOLUTE (CALC) 0.92 10/3/uL (0.67-4.30); METAMYELOCYTES 1 %; MONOCYTES 6 %; MONOCYTES ABSOLUTE (CALC) 1.39 10/3/uL (0.21-1.20); MYELOCYTES 2 %; NEUTROPHILS ABSOLUTE (CALC) 19.87 10/3/uL (2.02-8.40); PLATELET ESTIMATE SLT DEC (ADEQUATE); RBC MORPHOLOGY ABN (NORMAL); SEGMENTED NEUTROPHIL (0) 85 %; TOTAL NUCLEATED CELLS 100
[2017-02-27 04:15] LABS: HEMATOCRIT 23.2 % (36.0-48.0); MEAN CORPUSCULAR HEMOGLOB 29.2 pg (26.0-34.0); MEAN CORPUSCULAR VOLUME 84.7 fL (80-100); MEAN PLATELET VOLUME 9.8 fL (9.2-13.0); RBC DISTRIBUTION WIDTH 19.2 % (12.0-16.0); RED CELL COUNT 2.74 10/6/uL (4.0-5.6); WHITE BLOOD CELLS 19.5 10/3/uL (4.5-10.5)
[2017-02-27 04:18] LABS: MANUAL DIFF YES %; MEAN CORPUS HGB CONC 34.5 g/dL (32.0-36.0); PLATELET COUNT 168 10/3/uL (150-400)
[2017-02-27 04:46] LABS: BAND NEUTROPHILS 2 %; EOSINOPHILS 1 %; IMMATURE GRANS ABSOLUTE (CALC) 0.78 10/3/uL (0.0-0.11); LYMPHOCYTES 4 %; LYMPHOCYTES ABSOLUTE (CALC) 0.78 10/3/uL (0.67-4.30); METAMYELOCYTES 3 %; MONOCYTES 4 %; MONOCYTES ABSOLUTE (CALC) 0.78 10/3/uL (0.21-1.20); MYELOCYTES 1 %; NEUTROPHILS ABSOLUTE (CALC) 16.97 10/3/uL (2.02-8.40); SEGMENTED NEUTROPHIL (0) 85 %; TOTAL NUCLEATED CELLS 100
[2017-02-27 04:47] LABS: ANISOCYTOSIS 1+ (5-10/OIF) (0-5/OIF); PLATELET ESTIMATE ADQ (ADEQUATE); RBC MORPHOLOGY ABN (NORMAL)
[2017-02-27 05:35] LABS: A/G RATIO 0.6 (0.7-1.9); ALBUMIN 2.1 G/DL (3.5-5.0); ALKALINE PHOSPHATASE 151 U/L (45-117); CALCIUM, SERUM 7.8 MG/DL (8.5-10.4); CHLORIDE, SERUM 86 MMOL/L (96-112); CO2 (CARBON DIOXIDE) 33 MMOL/L (24-34); CREATININE 2.38 MG/DL (0.55-1.02); GFR AFRICAN AMERICAN 22 ML/MIN (>=60); GFR NON AFRICAN AMERICAN 19 ML/MIN (>=60); GLOBULIN 3.5 G/DL (2.5-4.1); GLUCOSE, SERUM 103 MG/DL (60-99); POTASSIUM, SERUM 3.2 MMOL/L (3.5-5.3); SGOT(AST) 596 U/L (5-40); SGPT(ALT) 177 U/L (5-65); SODIUM, SERUM 130 MMOL/L (135-148); TOTAL BILIRUBIN 1.4 MG/DL (0-1.2); TOTAL PROTEIN 5.6 G/DL (6.0-8.5)
[2017-02-27 05:36] LABS: BUN (BLOOD UREA NITROGEN) 58 MG/DL (6-23); CPK 8477 U/L (0-200); PHOSPHORUS, SERUM 4.5 MG/DL (2.5-4.5)
[2017-02-28 05:46] LABS: HEMATOCRIT 22.6 % (36.0-48.0); HEMOGLOBIN 7.5 g/dL (12.0-16.0); MEAN CORPUS HGB CONC 33.2 g/dL (32.0-36.0); MEAN CORPUSCULAR HEMOGLOB 28.4 pg (26.0-34.0); MEAN CORPUSCULAR VOLUME 85.6 fL (80-100); MEAN PLATELET VOLUME 9.4 fL (9.2-13.0); RBC DISTRIBUTION WIDTH 18.8 % (12.0-16.0); RED CELL COUNT 2.64 10/6/uL (4.0-5.6); WHITE BLOOD CELLS 20.9 10/3/uL (4.5-10.5)
[2017-02-28 05:47] LABS: MANUAL DIFF YES %; PLATELET COUNT 222 10/3/uL (150-400)
[2017-02-28 05:56] LABS: ALBUMIN 2.2 G/DL (3.5-5.0); BUN (BLOOD UREA NITROGEN) 59 MG/DL (6-23); CALCIUM, SERUM 8.2 MG/DL (8.5-10.4); CHLORIDE, SERUM 83 MMOL/L (96-112); CO2 (CARBON DIOXIDE) 33 MMOL/L (24-34); CREATININE 2.06 MG/DL (0.55-1.02); GFR AFRICAN AMERICAN 26 ML/MIN (>=60); GFR NON AFRICAN AMERICAN 23 ML/MIN (>=60); GLUCOSE, SERUM 101 MG/DL (60-99); PHOSPHORUS, SERUM 3.6 MG/DL (2.5-4.5); SODIUM, SERUM 126 MMOL/L (135-148)
[2017-02-28 06:33] LABS: ANISOCYTOSIS 1+ (5-10/OIF) (0-5/OIF); BAND NEUTROPHILS 8 %; EOSINOPHILS 1 %; EOSINOPHILS ABSOLUTE (CALC) 0.21 10/3/uL (0.0-0.53); IMMATURE GRANS ABSOLUTE (CALC) 0.42 10/3/uL (0.0-0.11); LYMPHOCYTES 3 %; LYMPHOCYTES ABSOLUTE (CALC) 0.63 10/3/uL (0.67-4.30); METAMYELOCYTES 2 %; MONOCYTES 9 %; MONOCYTES ABSOLUTE (CALC) 1.88 10/3/uL (0.21-1.20); NEUTROPHILS ABSOLUTE (CALC) 17.77 10/3/uL (2.02-8.40); PLATELET ESTIMATE ADQ (ADEQUATE); SEGMENTED NEUTROPHIL (0) 77 %; TOTAL NUCLEATED CELLS 100; TOXIC GRANULATION 1+
[2017-02-28 13:55] LABS: ASCORBIC ACID (UR NOT ORDER) NEG (NEG); BILIRUBIN, URINE NEGATIVE (NEG); KETONE, URINE NEGATIVE (NEG); LEUKOCYTE ESTERASE(NOT OR SMALL (NEG); WBC (NOT ORDERED) (RFLEX) 10 (0-5)
[2017-02-28 18:22] LABS: ALBUMIN 2.4 G/DL (3.5-5.0); BUN (BLOOD UREA NITROGEN) 57 MG/DL (6-23); CALCIUM, SERUM 8.5 MG/DL (8.5-10.4); CHLORIDE, SERUM 85 MMOL/L (96-112); CO2 (CARBON DIOXIDE) 35 MMOL/L (24-34); CREATININE 1.89 MG/DL (0.55-1.02); GFR AFRICAN AMERICAN 29 ML/MIN (>=60); GFR NON AFRICAN AMERICAN 25 ML/MIN (>=60); GLUCOSE, SERUM 113 MG/DL (60-99); SODIUM, SERUM 128 MMOL/L (135-148)
[2017-02-28 18:23] LABS: PHOSPHORUS, SERUM 2.6 MG/DL (2.5-4.5); POTASSIUM, SERUM 3.7 MMOL/L (3.5-5.3)
[2017-03-01 05:37] LABS: HEMATOCRIT 23.4 % (36.0-48.0); HEMOGLOBIN 7.7 g/dL (12.0-16.0); MEAN CORPUS HGB CONC 32.9 g/dL (32.0-36.0); MEAN CORPUSCULAR HEMOGLOB 28.5 pg (26.0-34.0); MEAN CORPUSCULAR VOLUME 86.7 fL (80-100); MEAN PLATELET VOLUME 9.1 fL (9.2-13.0); PLATELET COUNT 267 10/3/uL (150-400); RBC DISTRIBUTION WIDTH 19.1 % (12.0-16.0); WHITE BLOOD CELLS 22.9 10/3/uL (4.5-10.5)
[2017-03-01 05:38] LABS: MANUAL DIFF YES %
[2017-03-01 05:50] LABS: ALBUMIN 2.1 G/DL (3.5-5.0); CALCIUM, SERUM 8.4 MG/DL (8.5-10.4); CHLORIDE, SERUM 88 MMOL/L (96-112); CO2 (CARBON DIOXIDE) 33 MMOL/L (24-34); CREATININE 1.67 MG/DL (0.55-1.02); GFR AFRICAN AMERICAN 34 ML/MIN (>=60); GFR NON AFRICAN AMERICAN 29 ML/MIN (>=60); GLUCOSE, SERUM 118 MG/DL (60-99); PHOSPHORUS, SERUM 2.6 MG/DL (2.5-4.5); POTASSIUM, SERUM 3.6 MMOL/L (3.5-5.3); SODIUM, SERUM 130 MMOL/L (135-148)
[2017-03-01 05:52] LABS: BUN (BLOOD UREA NITROGEN) 53 MG/DL (6-23)
[2017-03-01 06:03] LABS: BAND NEUTROPHILS 2 %; EOSINOPHILS 2 %; EOSINOPHILS ABSOLUTE (CALC) 0.46 10/3/uL (0.0-0.53); IMMATURE GRANS ABSOLUTE (CALC) 0.23 10/3/uL (0.0-0.11); LYMPHOCYTES 4 %; LYMPHOCYTES ABSOLUTE (CALC) 0.92 10/3/uL (0.67-4.30); METAMYELOCYTES 1 %; MONOCYTES 3 %; MONOCYTES ABSOLUTE (CALC) 0.69 10/3/uL (0.21-1.20); NEUTROPHILS ABSOLUTE (CALC) 20.61 10/3/uL (2.02-8.40); SEGMENTED NEUTROPHIL (0) 88 %; TOTAL NUCLEATED CELLS 100
[2017-03-01 06:04] LABS: ANISOCYTOSIS 1+ (5-10/OIF) (0-5/OIF); PLATELET ESTIMATE ADQ (ADEQUATE)
[2017-03-02 06:09] LABS: HEMATOCRIT 23.3 % (36.0-48.0); HEMOGLOBIN 7.6 g/dL (12.0-16.0); MEAN CORPUS HGB CONC 32.6 g/dL (32.0-36.0); MEAN CORPUSCULAR HEMOGLOB 28.5 pg (26.0-34.0); MEAN CORPUSCULAR VOLUME 87.3 fL (80-100); MEAN PLATELET VOLUME 8.8 fL (9.2-13.0); PLATELET COUNT 303 10/3/uL (150-400); RBC DISTRIBUTION WIDTH 18.9 % (12.0-16.0); RED CELL COUNT 2.67 10/6/uL (4.0-5.6); WHITE BLOOD CELLS 23.6 10/3/uL (4.5-10.5)
[2017-03-02 06:10] LABS: MANUAL DIFF YES %
[2017-03-02 06:17] LABS: CALCIUM, SERUM 8.6 MG/DL (8.5-10.4); CHLORIDE, SERUM 89 MMOL/L (96-112); CO2 (CARBON DIOXIDE) 32 MMOL/L (24-34); CREATININE 1.31 MG/DL (0.55-1.02); GFR AFRICAN AMERICAN 45 ML/MIN (>=60); GFR NON AFRICAN AMERICAN 39 ML/MIN (>=60); GLUCOSE, SERUM 116 MG/DL (60-99); PHOSPHORUS, SERUM 2.4 MG/DL (2.5-4.5); POTASSIUM, SERUM 3.5 MMOL/L (3.5-5.3); SODIUM, SERUM 131 MMOL/L (135-148)
[2017-03-02 06:18] LABS: BUN (BLOOD UREA NITROGEN) 46 MG/DL (6-23)
[2017-03-02 06:35] LABS: ANISOCYTOSIS 1+ (5-10/OIF) (0-5/OIF); BAND NEUTROPHILS 3 %; EOSINOPHILS 1 %; EOSINOPHILS ABSOLUTE (CALC) 0.24 10/3/uL (0.0-0.53); LYMPHOCYTES 3 %; LYMPHOCYTES ABSOLUTE (CALC) 0.71 10/3/uL (0.67-4.30); MONOCYTES 13 %; MONOCYTES ABSOLUTE (CALC) 3.07 10/3/uL (0.21-1.20); NEUTROPHILS ABSOLUTE (CALC) 19.59 10/3/uL (2.02-8.40); PLATELET ESTIMATE ADQ (ADEQUATE); SEGMENTED NEUTROPHIL (0) 80 %; TOTAL NUCLEATED CELLS 100
[2017-03-02 06:36] LABS: RBC MORPHOLOGY ABN (NORMAL)
[2017-03-03 04:29] LABS: BASOPHILS 0.1 %; BASOPHILS ABSOLUTE 0.02 10/3/uL (0.0-0.16); EOSINOPHILS 0.3 %; EOSINOPHILS ABSOLUTE 0.06 10/3/uL (0.0-0.53); IMMATURE GRANULOCYTES 0.7 %; IMMATURE GRANULOCYTES ABSOLUTE 0.16 10/3/uL (0.0-0.11); LYMPHOCYTES 3.6 %; LYMPHOCYTES ABSOLUTE 0.82 10/3/uL (0.67-4.30); MEAN CORPUS HGB CONC 33.5 g/dL (32.0-36.0); MEAN CORPUSCULAR HEMOGLOB 29.4 pg (26.0-34.0); MEAN CORPUSCULAR VOLUME 87.9 fL (80-100); MEAN PLATELET VOLUME 9.3 fL (9.2-13.0); MONOCYTES ABSOLUTE 2.05 10/3/uL (0.21-1.20); NEUTROPHILS 86.3 %; NEUTROPHILS ABSOLUTE 19.76 10/3/uL (2.02-8.40); PLATELET COUNT 338 10/3/uL (150-400); RBC DISTRIBUTION WIDTH 17.4 % (12.0-16.0); WHITE BLOOD CELLS 22.9 10/3/uL (4.5-10.5)
[2017-03-03 04:32] LABS: HEMATOCRIT 28.4 % (36.0-48.0); HEMOGLOBIN 9.5 g/dL (12.0-16.0); MANUAL DIFF NO %; RED CELL COUNT 3.23 10/6/uL (4.0-5.6)
[2017-03-03 04:49] LABS: CALCIUM, SERUM 8.5 MG/DL (8.5-10.4); CHLORIDE, SERUM 89 MMOL/L (96-112); CO2 (CARBON DIOXIDE) 34 MMOL/L (24-34); CREATININE 1.22 MG/DL (0.55-1.02); GFR AFRICAN AMERICAN 49 ML/MIN (>=60); GFR NON AFRICAN AMERICAN 43 ML/MIN (>=60); GLUCOSE, SERUM 103 MG/DL (60-99); PHOSPHORUS, SERUM 2.4 MG/DL (2.5-4.5); POTASSIUM, SERUM 3.5 MMOL/L (3.5-5.3); SODIUM, SERUM 133 MMOL/L (135-148)
[2017-03-03 04:55] LABS: BUN (BLOOD UREA NITROGEN) 42 MG/DL (6-23); TROPONIN I 0.05 NG/ML (<0.05)
[2017-03-14] MEDS ORDERED: CORDARONE PO (13:13)
[2017-03-14] MEDS ORDERED: PLAVIX PO (13:13)
[2017-03-14] MEDS ORDERED: ASAB PO (13:13)
[2017-03-14] MEDS ORDERED: NORV5 PO (13:13)
[2017-03-14] MEDS ORDERED: LIPITOR40 PO (13:13)
[2017-03-14] MEDS ORDERED: SANTYL OINTMENT TOP (13:15)
[2017-03-14] MEDS ORDERED: PEP20 PO (13:16)
[2017-03-14] MEDS ORDERED: DSS PO (13:16)
[2017-03-14] MEDS ORDERED: VITAMIN B-122500 MCG SL (13:16)
[2017-03-14] MEDS ORDERED: IMDUR30 PO (13:17)
[2017-03-14] MEDS ORDERED: LEVAQUIN5T PO (13:17)
[2017-03-14] MEDS ORDERED: LOP25 PO (13:18)
[2017-03-14] MEDS ORDERED: DITRO5 PO (13:18)
[2017-03-14] MEDS ORDERED: MIRALAX POWDER1 PKT PO (13:19)
[2017-03-14] MEDS ORDERED: OXYCOD PO (13:19)
[2017-03-14] MEDS ORDERED: DAKIN'S SOLUTION TOP (13:20)
[2017-03-14] MEDS ORDERED: TRAZ50 PO (13:20)
[2017-03-14] MEDS ORDERED: NOVOLOG SC (13:21)
[2017-03-14] MEDS ORDERED: BIST PO (13:21)
[2017-03-14] MEDS ORDERED: ZOFRAN ODT4 MG PO (13:22)
[2017-03-14] MEDS ORDERED: ENULOSE PO (13:22)
== END 2017-03-03 15:08 | DRG 270 ==
LOC: SDC/OF 19:07 → CVICU 22:05 → 5NO 02-27 17:45
PROVIDERS: Internal Medicine Cardiovascular Disease; Internal Medicine Critical Care Medicine; Internal Medicine Nephrology; Internal Medicine Pulmonary Disease; Physician Assistant Medical; Surgery
DX: T82.868A Thrombosis due to vascular prosthetic devices, implants and grafts, initial encounter (principal); I21.19 ST elevation (STEMI) myocardial infarction involving other coronary artery of inferior wall; J96.02 Acute respiratory failure with hypercapnia; N17.0 Acute kidney failure with tubular necrosis; T81.11XA Postprocedural cardiogenic shock, initial encounter; D62 Acute posthemorrhagic anemia; L76.22 Postprocedural hemorrhage of skin and subcutaneous tissue following other procedure; I97.638 Postprocedural hematoma of a circulatory system organ or structure following other circulatory system procedure; D69.6 Thrombocytopenia, unspecified; I73.89 Other specified peripheral vascular diseases; I10 Essential (primary) hypertension; Z87.891 Personal history of nicotine dependence; Z79.82 Long term (current) use of aspirin; Z79.899 Other long term (current) drug therapy; Z98.890 Other specified postprocedural states; E78.5 Hyperlipidemia, unspecified; N99.0 Postprocedural (acute) (chronic) kidney failure; Z91.041 Radiographic dye allergy status; Z95.5 Presence of coronary angioplasty implant and graft; K21.9 Gastro-esophageal reflux disease without esophagitis
CPT/HCPCS: 31720; 32551; 36246; 36415; 36430; 36600; 37211; 37214; 37221; 37222; 37224; 37226; 71010; 74000; 75625; 75710; 75736; 76775; 80048; 80053; 80069; 81001; 82330; 82550; 82553; 82803; 82805; 82947; 82962; 83036; 83735; 83880; 84100; 84132; 84295; 84484; 85014; 85018; 85025; 85384; 85610; 85730; 86850; 86900; 86901; 86920; 87077; 87086; 87186; 87641; 88307; 88311; 92610-GN; 93005; 93306; 93880; 94002; 94003; 94660; 94770; 96365; 97162-GP; 97165-GO; 97530-GP; 99285; A9270-GY; C1725; C1751; C1769; C1874; C1887; C1894; J0282; J0690; J1170; J1200; J1205; J2250; J2270; J2370; J2405; J2920; J2930; J2997; J3010; J3475; J3480; P9016; P9035; P9045; P9059; Q9966

== ENCOUNTER 2017-03-14 14:54 | Inpatient (IN) | payer OTHER ==
--- NOTE | ~2017-03-14 | HP ---
History And Physical [place] [id number] [facility] [place]. [address] NAME: ALENA HERNANDEZ : 38 STATUS : ADM IN [facility]#: [id number] AGE: 76 ADM/REG DATE : 03/14/17 MR#: [id number] REPORT SERV DATE: 03/14/17 DICTATED BY: JULIET ELI IV DATE: 03/14/17 REPORT STATUS : Draft TRANSCRIBED BY: EMI DATE: 03/14/17 DATE OF ADMISSION: 03/14/2017 CRITICAL CARE ADMISSION NOTE 60 minutes of critical care time. TIME SEEN: 1600 hours to 1700 hours. REASON FOR ADMISSION: Gas gangrene of the soft tissues in the sacrum with emergent need for surgery. HISTORY OF PRESENT ILLNESS: History was obtained from the records and from the patient. Ms. Hernandez is a 76-year-old female with a history of severe peripheral arterial disease status post recent left AKA, hypertension, elevated cholesterol, recent non ST- elevation AL, iatrogenic pneumothorax, SVT who was admitted from [facility] with fever, elevated white blood cell count, and exam and radiographic findings consistent with gangrene in the soft tissues of the sacrum and buttocks. The patient recently underwent a hospitalization for an ischemic left lower extremity. She was admitted at Dr. Moreno service and with attempted revascularization which was unsuccessful, the patient ultimately underwent a left AK amputation. The hospitalization was complicated by acute kidney injury that had resolved and a hematoma in the surgical bed in the pelvic region. The patient had an iatrogenic pneumothorax which was treated with a chest tube on the right with resolution by the time of transfer. There is documentation of a soft tissue tear in the left buttock region at the time of transfer from the time of the admission to [facility] where she went for rehabilitation. Reportedly, the wound did okay until the last several days when there was noted a foul smell drainage, and the patient developed low-grade fevers. They put a fashioned Vac-Pac on the wound and sent her back here. In the emergency room, her white blood cell count was found to be elevated at 32,[address] of the abdomen and soft tissue demonstrating gas in the soft tissues left more than right. The patient has discomfort in the area that she feels is actually better than it had been previously. PULMONARY HISTORY: Remarkable for no history of childhood asthma, known adult obstructive lung disease, or previous pneumonia. She is a previous smoker, having quit about the age of 59, 30-40 pack years. She worked in a [employer] without occupational exposures to chemicals or solvents. She thinks she is up to date on both the seasonal and influenza vaccine and pneumococcal vaccinations. PAST MEDICAL HISTORY: 1. Severe peripheral arterial disease status post recent left AKA amputation. 2. Hypertension. 3. Elevated cholesterol. 4. Recent cru-AC-ryhfvjcxu AL. 5. Iatrogenic pneumothorax. 6. SVT on amiodarone. History And Physical [address] [address] NAME: ALENA HERNANDEZ : 38 STATUS : ADM IN [facility]#: [id number] AGE: 76 ADM/REG DATE : 03/14/17 MR#: [id number] REPORT SERV DATE: 03/14/17 DICTATED BY: JULIET ELI IV DATE: 03/14/17 REPORT STATUS : Draft TRANSCRIBED BY: EMI DATE: 03/14/17 SURGERIES: The patient has had multiple revascularizations of both lower extremities to include fem-popliteal bypass. She has had a hysterectomy, and she had the above knee amputation and a hemorrhoidectomy. ALLERGIES: LISTED ARE IODINE, TAPE, AND KAOPECTATE. MEDICATIONS: At time of admission include amiodarone 200 mg daily, Norvasc 5 mg daily, aspirin 81 mg daily, Lipitor 40 mg daily, Dulcolax p.r.n., Plavix 75 mg daily, B12 daily, Colace daily, Pepcid 20 mg twice a day, insulin sliding scale, Imdur 30 mg daily, Levaquin 500 mg daily x4 days, Lopressor 25 mg twice a day, Roxicodone, trazodone 50 mg at bedtime, and MiraLAX. SOCIAL HISTORY: Remarkable for the previous tobacco use as above. There is no alcohol or illicit drug use. She is and currently is at [facility]. FAMILY HISTORY: Remarkable for father with hypertension, elevated cholesterol, coronary artery disease both parents with that, and several siblings with diabetes, peripheral arterial disease, and coronary artery disease. REVIEW OF SYSTEMS: 14-systems reviewed and pertinent positives noted as above. PHYSICAL EXAMINATION: GENERAL: This is an elderly female, surprisingly in no distress. VITAL SIGNS: Heart rate is 84, blood pressure is 162/63, pulse is 84, temperature is 98.7, saturation 99% on room air. HEENT EXAM: Normocephalic, atraumatic. Extraocular movements are intact. Pupils react to light. Sclerae and conjunctivae normal. She has upper and lower dentures. She has a Mallampati II to III airway with narrowing of the posterior pharyngeal space. NECK: There is a healing puncture site in her left neck, likely the line site. There is no palpable lymphadenopathy or thyromegaly. CHEST: Breath sounds are symmetrically diminished. There is a slightly prolonged expiratory phase. No wheezes or rhonchi noted. CARDIOVASCULAR: Jugular venous pulsations appeared to be 6 cm. She has 2+ carotid upstrokes with bilateral bruits. She has a regular S1, S2 distant with no clear murmur or S3. Peripheral pulses are diminished in her right lower extremity. ABDOMEN: Multiple surgical scars are noted, protuberant, soft. There are hypoactive bowel sounds. There is no palpable hepatosplenomegaly or mass. : She has bruising in her lower pelvic region. She has a Villatoro catheter in position. She has normal external female genitalia. She has a large wound in her left buttocks that tracks and has gas which emanates from it. There is a smaller lesion on her right buttocks and sacrum. There is a healing left AKA wound site. No lesions of the right lower extremity. EXTREMITIES: There is no cyanosis, clubbing, or palpable cords. NEUROLOGIC: The patient is able to move her right leg and arms. There does appear to be maybe a small footdrop on the right foot. History And Physical [address] [place]. [address] NAME: ALENA HERNANDEZ : 38 STATUS : ADM IN [facility]#: [id number] AGE: 76 ADM/REG DATE : 03/14/17 MR#: [id number] REPORT SERV DATE: 03/14/17 DICTATED BY: JULIET ELI IV DATE: 03/14/17 REPORT STATUS : Draft TRANSCRIBED BY: EMI DATE: 03/14/17 LABORATORY DATA: Chest x-ray demonstrates no acute pulmonary disease. Specifically, there is no residual pneumothorax. Abdominal CT scan demonstrates a large retroperitoneal hematoma with a large defect in the tissues in the left buttocks with gas more in the soft tissues on the left than the right. There is ileus. There is hydronephrosis bilaterally with a density in the bladder possibly representing hematoma. CBC: Hemoglobin 9.1, hematocrit 26.8, platelet count was 434,000. White cell count is 32.1. There are 20 bands. PTT is 36.1. INR is 1.2. Chemistry: Sodium is 124, potassium 4, chloride 82, bicarb of 27, BUN 58, creatinine 2.20, glucose of 86, albumin is 1.9. Alkaline phosphatase is 257, AST is 67, ALT is 35. The procalcitonin level is 0.87. Lactate is not elevated at 1.8. The patient has been typed and screened. The wound demonstrates moderate gram-negative and moderate gram-positive cocci with a few gram-positive bacilli. Urine demonstrates 100 of protein, more than 182 red blood cells, and 61 white blood cells. ASSESSMENT AND PLAN: 1. Infectious Disease. The patient has apparent gas gangrene of the soft tissues and will be going to surgery shortly. She will be given Zosyn and vancomycin which will be continued and adjusted for cultures. Lactate level will be repeated in 3 hours and tomorrow. Cultures have been sent, and surgical cultures will be sent as well. 2. Renal. The patient has acute kidney injury, will need to be followed. This may go into renal failure again. We will hold on Nephrology consult overnight. Mag and phos will be added to blood in the lab. Urology has been consulted for her hydronephrosis, and she is undergoing bladder lavage. 3. Cardiovascular. EKG will be obtained now. Levophed will be given as needed for elevated blood pressure. A troponin level will be obtained in the morning. Fluid resuscitation if her blood pressure drops. She will remain on the amiodarone with a troponin level in the morning. 4. Endocrinologic. Cortisol level will be obtained. Insulin sliding scale has been ordered. We will watch the patient's blood sugar. 5. Neurologic. Pain management, Thiamine 200 mg daily for debilitated state. Multivitamin given daily. 6. Gastrointestinal. Protonix for GI prophylaxis, n.p.o. for now. An NG will be placed in the OR. 7. Hematologic. Retroperitoneal bleed is likely old and from the original surgery, this will be followed. Heparin subcu for deep vein thrombosis prophylaxis when okay with surgery. 8. Respiratory. The patient may have a component of COPD. She will come out of the OR in the ventilator. DuoNeb will be given q.4 hours, Dulera 5 puffs twice a day. Daily chest x-rays. 9. Social. A long discussion with the patient's family. They understand the critical nature. This was discussed additionally with the patient. She does not want heroic measures performed. She understands she will come out of the ventilator and will be on vasopressors. This will be limited. If she does not clinically improve, she would not want CPR, medications for malignant rhythms, and shock or defibrillation. These orders have been provided. The patient will be admitted under the meter reader inspector service, History And Physical [address] [address] NAME: ALENA HERNANDEZ : 38 STATUS : ADM IN [facility]#: [id number] AGE: 76 ADM/REG DATE : 03/14/17 MR#: [id number] REPORT SERV DATE: 03/14/17 DICTATED BY: JULIET ELI IV DATE: 03/14/17 REPORT STATUS : Draft TRANSCRIBED BY: EMI DATE: 03/14/17 however, will immediately to go to surgery under Dr. Duong. 60 minutes of critical care time. TATA/EMI Juliet Eli IV, M.D. / [id number] CC: Cally Adrian IV, M.D.
--- NOTE | ~2017-03-14 | DS ---
Discharge Summary [facility] [address] [place]. [address] NAME: ALENA GUERRIER : 38 STATUS : DIS IN PAT#: [id number] AGE: 76 ADM/REG DATE : 03/14/17 MR#: [id number] REPORT SERV DATE: 03/19/17 DICTATED BY: SALVADOR VILLARREAL DATE: 03/18/17 REPORT STATUS : Draft TRANSCRIBED BY: MODJonn DATE: 03/18/17 ADMISSION DATE: 03/14/2017 DISCHARGE DATE: 03/17/2017 DIAGNOSES: 1. Necrotizing fasciitis of the buttocks and the perineal and the groin area. 2. Acute kidney injury. 3. Sepsis. 4. Severe peripheral arterial disease, status post recent left above knee amputation. 5. Hypertension. 6. Hyperlipidemia. 7. Recent non ST-elevation myocardial infarction. 8. Iatrogenic pneumothorax, currently resolved. 9. Supraventricular tachycardia. 10.Retroperitoneal bleed, most likely from prior surgery. It was deemed to be likely old. 11.Soft tissue gangrene in the area of both buttocks, left more than right. 12.Sacral decubitus. CONSULTANTS DURING THIS HOSPITALIZATION: Dr. Pardeep Posada of Urology, Dr. Greyson Duong of General Surgery. INVASIVE PROCEDURES DONE DURING THIS HOSPITALIZATION: None. BRIEF HISTORY OF PRESENT ILLNESS: The patient presented on 03/14/2017 with fever, chills, and clinical findings of severe tissue breakdown on both buttocks with fasciitis and sepsis, so she was admitted. For detailed history and physical exam, please see note dictated by Dr. Duy Eli on 03/14/2017. HOSPITAL COURSE: After being admitted to the hospital, this patient was placed in the intensive care unit under the care of soft sugar cutter. Please refer to interim summary dictated by Dr. Duy Eli on 03/15/2017. I have received this patient on 03/16/2017. This patient was supposedly being enrolled in hospice and was made comfort care. I discussed her care with Dr. Eli as well as Dr. Duong, and we all agreed that, that was the best option. At that time, we proceeded on to put the patient on morphine FRAME POLISHER to better control her pain, and within 24 hours, hospice was consulted. The patient yesterday was accepted to hospice and has been transferred to hospice for further terminal care. DISCHARGE DISPOSITION: To hospice. DISCHARGE ACTIVITY: The patient is bed bound at this time for pain control and illness. DISCHARGE DIET: As tolerated. DISCHARGE MEDICATIONS: Will be deferred to hospice. DISCHARGE FOLLOWUP: With hospice. Discharge Summary [place] [address] [place]. [address] NAME: ALENA GUERRIER : 38 STATUS : DIS IN PAT#: [id number] AGE: 76 ADM/REG DATE : 03/14/17 MR#: [id number] REPORT SERV DATE: 03/19/17 DICTATED BY: SALVADOR VILLARREAL DATE: 03/18/17 REPORT STATUS : Draft TRANSCRIBED BY: EIM DATE: 03/18/17 More than 30 minutes spent planning this patient's discharge, discussing hospice care with the family, arranging hospice, and documenting this discharge. RONALD/EMI Salvador Villarreal M.D. / [id number] CC: Cally Adrian IV, M.D.
--- NOTE | ~2017-03-14 | CN ---
Consultation Report [facility] [address] [place]. [address] NAME: ALENA GUERRIER : 38 STATUS : ADM IN [facility]#: [id number] AGE: 76 ADM/REG DATE : 03/14/17 MR#: [id number] REPORT SERV DATE: 03/15/17 DICTATED BY: LENARD DUONG DATE: 03/14/17 REPORT STATUS : Draft TRANSCRIBED BY: MODJonn DATE: 03/14/17 GENERAL SURGERY CONSULTATION DATE OF CONSULTATION: 03/14/2017 CHIEF COMPLAINT: Sacral wound. HISTORY OF PRESENT ILLNESS: This is a 76-year-old female, who has a significant masculopath, who recently underwent a left above-knee amputations and was subsequently discharged to [facility]. The patient was then re-presented to [facility] for concerns of wound management. Upon evaluation, the patient was found to have a soft tissue necrotizing infection consistent with gas gangrene on the sacral wound that extends into the left groin. CT scan and labs are consistent with this. REVIEW OF SYSTEMS: The patient mainly complains pain to her sacral area and groin. The patient also recently started having some bloody urine discharge. On systems review, the patient denies any other symptoms. Family expresses the patient seems to be somewhat altered. ALLERGIES: IODINE, TAPE, LOPERAMIDE. MEDICAL HISTORY: Hypertension, peripheral vascular disease, bilateral carotid disease. PAST SURGICAL HISTORY: Hysterectomy, hemorrhoidectomy, lower extremity bypass in both legs with a known left femoral-popliteal bypass and stenting on the right. SOCIAL HISTORY: Former tobacco abuser. No alcohol. No drugs. She is . FAMILY HISTORY: Father with coronary artery disease. Other family members with diabetes, hypertension, and coronary artery disease. MEDICATIONS: See list, but includes and is significant for Plavix. PHYSICAL EXAMINATION: VITAL SIGNS: Temperature 98.2, blood pressure 160/63, pulse of 84, respiratory rate 20, O2 sats 98%. GENERAL: This is a well-developed elderly female who appears her stated age. She has an overall appearance of being sick and unwell. HEENT: Normocephalic, atraumatic. PERRLA. EOMI. Mucous membranes dry. NECK: No lymphadenopathy. Trachea midline. Carotid bruit bilaterally. CARDIOVASCULAR: Regular rate and rhythm. LUNGS: Clear to auscultation bilaterally. ABDOMEN: Soft, nondistended, nontender. Bowel sounds present. EXTREMITIES: 1+ pulse in the left upper extremity. Right upper extremity 2+ radial pulse. No palpable pulses on the right lower extremity, but has good cap refill about 2 seconds and Consultation Report [place] [id number] [place]. [address] NAME: ALENA GUERRIER : 38 STATUS : ADM IN PAT#: [id number] AGE: 76 ADM/REG DATE : 03/14/17 MR#: [id number] REPORT SERV DATE: 03/15/17 DICTATED BY: LENARD DUONG DATE: 03/14/17 REPORT STATUS : Draft TRANSCRIBED BY: MODL DATE: 03/14/17 is warm to the touch. Left extremity status post AKA. MUSCULOSKELETAL: Moves all extremities well. The sacral area, the soft tissue necrotizing. Infection present and positive for gas gangrene, visualized air being expressed from the center of the wound. Smells rancid of necrotic tissue. The wound extends from the sacral area to the left groin wrapping posterior to anterior. NEURO: Cranial nerves 2 through 12 are intact. AAO x3. Of note, the blood is seen in the Villatoro bag. She does have ecchymosis to the right groin. LABORATORY DATA: White blood cell count is 32.1, hematocrit 26.8, platelets of 434. PTT 36.1. INR 1.2. Sodium 124, potassium 4.0, chloride 82, bicarb 27, BUN 58, creatinine 2.2, which is increased from 1.22 on 03/03/2017, glucose 86, calcium 8.5, albumin 1.9. T bilirubin 2.9. Alkaline phosphatase 269, AST 67. Lactate 1.8. Urinalysis: White blood cells 61, red blood cells greater then 182, leukocyte esterase trace, nitrite negative. CT of the abdomen and pelvis, large retroperitoneal hematoma on the left, fluid and gas questionable highly suspicious for abscess. Right hydronephrosis and hydroureter. There is clot in the bladder noted. ASSESSMENT AND PLAN: This is a 76-year-old female, who appears to have a necrotizing soft tissue infection in the sacral area and is septic. I had a long discussion with the patient and the patient's family, expressed the current medical situation and need for operative intervention. I explained the patient's poor prognosis. Risks, benefits, alternatives were explained. Risks include, but not limited to, pain, bleeding, infection, injury to surrounding structures, failure of the operation, need for future operations, wound healing failure, [place], CVA, failure to wean from the ventilator, and . The patient expressed clear verbal understanding and wished to proceed forward an emergent operation at this time. All questions were answered and so we will proceed forward with emergent operation. DICTATED BY: MD JOSE D Abad/MODL Lenard Duong MD / [id number] CC: Ad Calle M.D.
--- NOTE | ~2017-03-14 | IDS ---
Interim Discharge Summary [facility] [address] [place]. [address] NAME: ALENA GUERRIER : 38 STATUS : ADM IN PAT#: [id number] AGE: 76 ADM/REG DATE : 03/14/17 MR#: [id number] REPORT SERV DATE: 03/15/17 DICTATED BY: JULIET ELI IV DATE: 03/15/17 REPORT STATUS : Draft TRANSCRIBED BY: EMI DATE: 03/15/17 ADMISSION DATE: 03/14/2017 DISCHARGE DATE: DATE OF TRANSFER TO THE FLOOR: 03/15/2017. ADMITTING DIAGNOSES: 1. Soft tissue gangrene into the area both buttocks, left more than right. [place] not to be a surgical candidate because of the extent of disease and her comorbid illnesses, now DNR, approaching comfort measures. 2. Sacral decubitus. 3. Acute kidney injury, improved. 4. Severe peripheral arterial disease. 5. Clinical chronic obstructive pulmonary disease, on bronchodilator medications. 6. Hypertension. 7. Elevated cholesterol. 8. Recent apo-VI-dszibifiq myocardial infarction. 9. Recent supraventricular tachycardia. CONSULTANTS: 1. Urology with bladder irrigation for bladder hematoma and hydronephrosis. 2. Surgery, Dr. Duong with the decision not to proceed with wound debridement. PROCEDURES: None, other than Villatoro with bladder irrigation. CURRENT MEDICATIONS: Cordarone 200 mg daily, Dulera two puffs twice a day, DuoNebs q.4 hours awake and q.4 hours as needed, heparin 5000 units q.12 hours, thiamine 200 mg daily, vancomycin per pharmacy, Lipitor 40 mg daily, Protonix 40 mg daily, multivitamin daily, Zosyn 3.375 g q.8 hours. HOSPITAL COURSE: The patient presented on 03/14 with fevers and clinical findings of severe tissue breakdown in both buttocks in the inner thigh more on the left. CT scan demonstrated soft tissue gas with extensive decubitus. The original plan was to proceed with surgery, however, when Dr. Duong evaluated and spoke to the patient, he felt that the outcome would be terrible and with a comorbid disease that decision was made not to proceed with surgery or debridement. The patient was made a DNR. We have continued antibiotics and some support pending arrival of family members. We have consulted hospice about disposition since she is amazingly normotensive and looks good at this time. We will transfer to a non-monitored floor bed while arrangements are being made. We will ask the Hospitalist Service to resume primary responsibility. I will not order any further labs, though we will continue antibiotics pending arrival of family. TATA/EMI Interim Discharge Summary [address] [place]. [address] NAME: ALENA GUERRIER : 38 STATUS : ADM IN PAT#: [id number] AGE: 76 ADM/REG DATE : 03/14/17 MR#: [id number] REPORT SERV DATE: 03/15/17 DICTATED BY: JULIET ELI IV DATE: 03/15/17 REPORT STATUS : Draft TRANSCRIBED BY: EMI DATE: 03/15/17 Juliet Eli IV, M.D. / [id number] CC: Cally Adrian IV, M.D.
--- NOTE | ~2017-03-14 | CN ---
Consultation Report [facility] [address] [place]. [address] NAME: ALENA HERNANDEZ : 38 STATUS : ADM IN [facility]#: [id number] AGE: 76 ADM/REG DATE : 03/14/17 MR#: [id number] REPORT SERV DATE: 03/15/17 DICTATED BY: Cecil BEY DATE: 03/15/17 REPORT STATUS : Draft TRANSCRIBED BY: EMI DATE: 03/15/17 CONSULTATION DATE OF CONSULTATION: 03/14/2017 CHIEF COMPLAINT: Gross hematuria with clot retention, retroperitoneal hemorrhage. HISTORY OF PRESENT ILLNESS: Ms. Hernandez is a 76-year-old white female [facility] 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 She had recently been hospitalized at [facility] for an ischemic left lower extremity and underwent a failed revascularization procedure and a left AKA. She denies any history. She apparently developed bleeding and a CT scan showed evidence of left retroperitoneal hemorrhage. She has not been hypotensive, and denies any previous history except for acute kidney injury. PAST MEDICAL HISTORY: 1. Severe peripheral vascular disease. 2. Hypertension. 3. Hypercholesterolemia. 4. Recent ME. 5. History of pneumothorax. 6. Supraventricular tachycardia. 7. DVT, left lower extremity. PAST SURGICAL HISTORY: 1. Left above-knee amputation. 2. Multiple lower extremity bypasses over the last 20 years. 3. Hemorrhoidectomy. 4. Hysterectomy. 5. Lumbar surgery in 2016. CURRENT MEDICATIONS: Amiodarone, Norvasc, MiraLAX, trazodone, Roxicodone, Lopressor, Levaquin, Imdur, insulin, Pepcid, Colace, B12, Plavix, Dulcolax, Lipitor, aspirin. ALLERGIES: IODINE, KAOPECTATE, TAPE. SOCIAL HISTORY: The patient is a former smoker. She drinks a significant amount of alcohol five days a week. FAMILY HISTORY: Negative for known urologic disease. REVIEW OF SYSTEMS: Full 14-point review of systems negative except as noted above. Consultation Report [place] [id number] [facility] [address] [place]. [address] NAME: ALENA HERNANDEZ : 38 STATUS : ADM IN PAT#: [id number] AGE: 76 ADM/REG DATE : 03/14/17 MR#: [id number] REPORT SERV DATE: 03/15/17 DICTATED BY: Cecil BEY DATE: 03/15/17 REPORT STATUS : Draft TRANSCRIBED BY: EMI DATE: 03/15/17 PHYSICAL EXAMINATION: GENERAL: Remarkably alert, elderly white female, in no distress. VITAL SIGNS: Temperature 98, pulse 88, blood pressure stable. HEENT: Normocephalic, atraumatic. CHEST: No respiratory distress. HEART: Regular rate and rhythm. ABDOMEN: Protuberant, distended as per patient and family, but no rebound tenderness noted. She has a lower midline scar that she says is from hysterectomy. : Indwelling 24-Somali, three-way Villatoro catheter is now draining light pink urine. Several clots have been evacuated. EXTREMITIES: She is not ambulatory. She has a normal appearing right extremity. She is status post left AKA. Her sacral decubitus by report shows gangrenous changes. PERTINENT LABORATORY: Hemoglobin 9.1, white count 32,000. INR 1.2. Creatinine 2.2. CT scan review shows a left retroperitoneal bleed with right hydronephrosis. IMPRESSION: 1. Multiple medical problems including acute kidney injury and coronary artery disease. 2. 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 3. Retroperitoneal bleed. 4. Right hydronephrosis of uncertain etiology. 5. Intravesical clot. PLAN: 1. She is to be seen by General Surgery to decide if they want to debride this area. Early indications indicate that they do not think that she could recover from that surgery due to the extensive defect it would cause. 2. As far as her bleeding, unless her catheter becomes obstructed or there are other problems, I would rather not take her to the OR obviously. A cysto clot evacuation could be performed, but if she is to become a hospice patient, I would only do that in the face of bleeding, misery, etc. We will follow with you and plan to intervene as indicated. NATASHA/EMI Cecil Bey M.D. / [id number] CC: Consultation Report [address] [address] NAME: ALENA HERNANDEZ : 38 STATUS : ADM IN PAT#: [id number] AGE: 76 ADM/REG DATE : 03/14/17 MR#: [id number] REPORT SERV DATE: 03/15/17 DICTATED BY: Cecil BEY DATE: 03/15/17 REPORT STATUS : Draft TRANSCRIBED BY: EMI DATE: 03/15/17 Duy Eli IV, M.D.
[2017-03-14 12:47] LABS: BASOPHILS 0.1 %; BASOPHILS ABSOLUTE 0.02 10/3/uL (0.0-0.16); EOSINOPHILS 0.1 %; EOSINOPHILS ABSOLUTE 0.03 10/3/uL (0.0-0.53); ER CBC TAT 0 Hrs 08 Mins; HEMATOCRIT 26.8 % (36.0-48.0); HEMOGLOBIN 9.1 g/dL (12.0-16.0); IMMATURE GRANULOCYTES 3.1 %; LYMPHOCYTES 3.9 %; LYMPHOCYTES ABSOLUTE 1.25 10/3/uL (0.67-4.30); MEAN CORPUSCULAR HEMOGLOB 29.4 pg (26.0-34.0); MEAN CORPUSCULAR VOLUME 86.5 fL (80-100); MEAN PLATELET VOLUME 9.2 fL (9.2-13.0); MONOCYTES ABSOLUTE 1.27 10/3/uL (0.21-1.20); NEUTROPHILS 88.8 %; NEUTROPHILS ABSOLUTE 28.51 10/3/uL (2.02-8.40); PLATELET COUNT 434 10/3/uL (150-400); RBC DISTRIBUTION WIDTH 18.5 % (12.0-16.0); WHITE BLOOD CELLS 32.1 10/3/uL (4.5-10.5)
[2017-03-14 12:48] LABS: IMMATURE GRANULOCYTES ABSOLUTE 0.98 10/3/uL (0.0-0.11); MANUAL DIFF NO %
[2017-03-14 12:55] LABS: INTERNATIONAL NORMAL RATI 1.2 UNITS (-); PARTIAL THROMBO TIME 36.1 SEC (22.5-37.2); PROTIME (NOT ORD) 15.1 SEC (12.0-14.5)
[2017-03-14 13:01] LABS: ALBUMIN 1.9 G/DL (3.5-5.0); CALCIUM, SERUM 8.5 MG/DL (8.5-10.4); CHLORIDE, SERUM 82 MMOL/L (96-112); GLUCOSE, SERUM 86 MG/DL (60-99); SGOT(AST) 67 U/L (5-40); SGPT(ALT) 35 U/L (5-65); TOTAL PROTEIN 6.7 G/DL (6.0-8.5)
[2017-03-14 13:02] LABS: CO2 (CARBON DIOXIDE) 27 MMOL/L (24-34); SODIUM, SERUM 124 MMOL/L (135-148)
[2017-03-14 13:03] LABS: A/G RATIO 0.4 (0.7-1.9); ALKALINE PHOSPHATASE 259 U/L (45-117); BUN (BLOOD UREA NITROGEN) 58 MG/DL (6-23); GFR AFRICAN AMERICAN 24 ML/MIN (>=60); GFR NON AFRICAN AMERICAN 21 ML/MIN (>=60); GLOBULIN 4.8 G/DL (2.5-4.1); TOTAL BILIRUBIN 2.9 MG/DL (0-1.2)
[2017-03-14 13:19] LABS: PROCALCITONIN 0.87 ng/mL (<0.5)
[2017-03-14 13:33] LABS: BAND NEUTROPHILS 20 %; ER DIFF TAT 0 Hrs 54 Mins; IMMATURE GRANS ABSOLUTE (CALC) 0.32 10/3/uL (0.0-0.11); LYMPHOCYTES 4 %; LYMPHOCYTES ABSOLUTE (CALC) 1.28 10/3/uL (0.67-4.30); METAMYELOCYTES 1 %; MONOCYTES 1 %; MONOCYTES ABSOLUTE (CALC) 0.32 10/3/uL (0.21-1.20); NEUTROPHILS ABSOLUTE (CALC) 30.17 10/3/uL (2.02-8.40); SEGMENTED NEUTROPHIL (0) 74 %; TOTAL NUCLEATED CELLS 100
[2017-03-14 13:34] LABS: ANISOCYTOSIS 1+ (5-10/OIF) (0-5/OIF); MICROCYTES 1+ (5-10/OIF) (0-5/OIF); PLATELET ESTIMATE SLT INC (ADEQUATE); POLYCHROMASIA 1+ (2-5/OIF) (0-1/OIF); TOXIC GRANULATION 1+
[2017-03-14 13:54] LABS: LACTATE 1.8 MMOL/L (0.3-2.4)
[~2017-03-14 14:54] MED LIST changes: +BIST PO; +CORDARONE PO; +DAKIN'S SOLUTION TOP; +DSS PO; +ENULOSE PO; +IMDUR30 PO; +LEVAQUIN5T PO; +LOP25 PO; +MIRALAX POWDER1 PKT PO; +NORV5 PO; +NOVOLOG SC; +OXYCOD PO; +PEP20 PO; +SANTYL OINTMENT TOP; +ZOFRAN ODT4 MG PO
[2017-03-14 16:30] LABS: ASCORBIC ACID (UR NOT ORDER) NEG (NEG); BILIRUBIN, URINE NEGATIVE (NEG); ER URINALYSIS TAT 0 Hrs 16 Mins; KETONE, URINE NEGATIVE (NEG); LEUKOCYTE ESTERASE(NOT OR TRACE (NEG); NITRITE (URINE) NEG (NEG); WBC (NOT ORDERED) (RFLEX) 61 (0-5)
[2017-03-14 21:40] LABS: FREE T4 1.64 NG/DL (0.76-1.46)
[2017-03-14 21:43] LABS: FOLATE 8.4 NG/ML (>5.2); PHOSPHORUS, SERUM 5.6 MG/DL (2.5-4.5)
[2017-03-15 05:57] LABS: MEAN CORPUS HGB CONC 34.1 g/dL (32.0-36.0); MEAN CORPUSCULAR HEMOGLOB 29.1 pg (26.0-34.0); MEAN CORPUSCULAR VOLUME 85.4 fL (80-100); MEAN PLATELET VOLUME 8.6 fL (9.2-13.0); RBC DISTRIBUTION WIDTH 18.9 % (12.0-16.0)
[2017-03-15 05:58] LABS: HEMATOCRIT 21.1 % (36.0-48.0); HEMOGLOBIN 7.2 g/dL (12.0-16.0); MANUAL DIFF YES %; PLATELET COUNT 296 10/3/uL (150-400); RED CELL COUNT 2.47 10/6/uL (4.0-5.6)
[2017-03-15 06:09] LABS: CALCIUM, SERUM 7.8 MG/DL (8.5-10.4); CHLORIDE, SERUM 91 MMOL/L (96-112); CO2 (CARBON DIOXIDE) 27 MMOL/L (24-34); PHOSPHORUS, SERUM 4.9 MG/DL (2.5-4.5); SGOT(AST) 47 U/L (5-40); SGPT(ALT) 23 U/L (5-65); SODIUM, SERUM 130 MMOL/L (135-148); TOTAL PROTEIN 5.4 G/DL (6.0-8.5); TROPONIN I <0.02 NG/ML (<0.05)
[2017-03-15 06:13] LABS: A/G RATIO 0.4 (0.7-1.9); ALBUMIN 1.5 G/DL (3.5-5.0); ALKALINE PHOSPHATASE 163 U/L (45-117); BUN (BLOOD UREA NITROGEN) 53 MG/DL (6-23); CREATININE 1.59 MG/DL (0.55-1.02); GFR AFRICAN AMERICAN 36 ML/MIN (>=60); GFR NON AFRICAN AMERICAN 31 ML/MIN (>=60); GLOBULIN 3.9 G/DL (2.5-4.1); GLUCOSE, SERUM 124 MG/DL (60-99); TOTAL BILIRUBIN 2.2 MG/DL (0-1.2)
[2017-03-15 06:47] LABS: BAND NEUTROPHILS 14 %; IMMATURE GRANS ABSOLUTE (CALC) 0.28 10/3/uL (0.0-0.11); LYMPHOCYTES 3 %; LYMPHOCYTES ABSOLUTE (CALC) 0.84 10/3/uL (0.67-4.30); METAMYELOCYTES 1 %; MONOCYTES 1 %; MONOCYTES ABSOLUTE (CALC) 0.28 10/3/uL (0.21-1.20); PLATELET ESTIMATE ADQ (ADEQUATE); SEGMENTED NEUTROPHIL (0) 81 %; TOTAL NUCLEATED CELLS 100
[2017-03-15 06:48] LABS: ANISOCYTOSIS 1+ (5-10/OIF) (0-5/OIF); HYPOCHROMIA 1+ (3-10/OIF) (0-2/OIF)
[2017-03-16 06:19] LABS: HEMATOCRIT 21.6 % (36.0-48.0); HEMOGLOBIN 7.4 g/dL (12.0-16.0); MEAN CORPUS HGB CONC 34.3 g/dL (32.0-36.0); MEAN CORPUSCULAR HEMOGLOB 29.7 pg (26.0-34.0); MEAN CORPUSCULAR VOLUME 86.7 fL (80-100); MEAN PLATELET VOLUME 8.5 fL (9.2-13.0); PLATELET COUNT 277 10/3/uL (150-400); RBC DISTRIBUTION WIDTH 19.4 % (12.0-16.0); RED CELL COUNT 2.49 10/6/uL (4.0-5.6); WHITE BLOOD CELLS 23.2 10/3/uL (4.5-10.5)
[2017-03-16 06:25] LABS: MANUAL DIFF YES %
[2017-03-16 06:31] LABS: CALCIUM, SERUM 7.6 MG/DL (8.5-10.4); CHLORIDE, SERUM 98 MMOL/L (96-112); CO2 (CARBON DIOXIDE) 29 MMOL/L (24-34); POTASSIUM, SERUM 3.3 MMOL/L (3.5-5.3); SODIUM, SERUM 134 MMOL/L (135-148)
[2017-03-16 06:32] LABS: BUN (BLOOD UREA NITROGEN) 34 MG/DL (6-23); GFR AFRICAN AMERICAN 63 ML/MIN (>=60); GFR NON AFRICAN AMERICAN 54 ML/MIN (>=60); GLUCOSE, SERUM 99 MG/DL (60-99)
[2017-03-16 06:57] LABS: ANISOCYTOSIS 1+ (5-10/OIF) (0-5/OIF); BAND NEUTROPHILS 10 %; HYPOCHROMIA 1+ (3-10/OIF) (0-2/OIF); LYMPHOCYTES 5 %; LYMPHOCYTES ABSOLUTE (CALC) 1.16 10/3/uL (0.67-4.30); MICROCYTES 1+ (5-10/OIF) (0-5/OIF); MONOCYTES 6 %; MONOCYTES ABSOLUTE (CALC) 1.39 10/3/uL (0.21-1.20); NEUTROPHILS ABSOLUTE (CALC) 20.65 10/3/uL (2.02-8.40); PLATELET ESTIMATE ADQ (ADEQUATE); SEGMENTED NEUTROPHIL (0) 79 %; TOTAL NUCLEATED CELLS 100
[2017-03-16] MEDS ORDERED: VITAMIN B-122500 MCG SL (16:27)
== END 2017-03-17 19:32 | disposition hospice, inpatient (51) | DRG 871 ==
LOC: ER 14:54 → MIC 17:03 → 4EA 03-15 15:44
PROVIDERS: Emergency Medicine; Internal Medicine; Internal Medicine Critical Care Medicine
DX: A41.9 Sepsis, unspecified organism (principal); M72.6 Necrotizing fasciitis; N17.9 Acute kidney failure, unspecified; L89.154 Pressure ulcer of sacral region, stage 4; I96 Gangrene, not elsewhere classified; N13.30 Unspecified hydronephrosis; Z89.612 Acquired absence of left leg above knee; I10 Essential (primary) hypertension; E78.00 Pure hypercholesterolemia, unspecified; I70.209 Unspecified atherosclerosis of native arteries of extremities, unspecified extremity; Z51.5 Encounter for palliative care; Z66 Do not resuscitate; I25.2 Old myocardial infarction; Z90.710 Acquired absence of both cervix and uterus; Z98.890 Other specified postprocedural states; Z91.041 Radiographic dye allergy status; Z82.49 Family history of ischemic heart disease and other diseases of the circulatory system; Z87.891 Personal history of nicotine dependence; Z79.82 Long term (current) use of aspirin
CPT/HCPCS: 36415; 71010; 74176; 80048; 80053; 81001; 82533; 82607; 82746; 82962; 83605; 83735; 84100; 84145; 84439; 84443; 84484; 85025; 85610; 85730; 86850; 86900; 86901; 86920; 87040; 87070; 87077; 87086; 87186; 87205; 87641; 93005; 94640; 96374; 99291; 99292; A9270-GY; C9113; J0360; J1170; J2270; J2543; J3010; J3370; J3411; J3475

== ENCOUNTER 2017-03-17 19:40 | Inpatient (IN) | payer OTHER ==
--- NOTE | ~2017-03-17 | HP ---
History And Physical [facility] [address] [place]. [address] NAME: ALENA GUERRIER : 38 STATUS : DIS IN PAT#: [id number] AGE: 76 ADM/REG DATE : 03/17/17 MR#: [id number] REPORT SERV DATE: 03/29/17 DICTATED BY: NATHANAEL MANCILLA DATE: 03/18/17 REPORT STATUS : Draft TRANSCRIBED BY: MODJonn DATE: 03/18/17 DATE OF ADMISSION: 03/17/2017 HISTORY OF PRESENT ILLNESS: The patient is a 76-year-old white female with a long history of severe peripheral vascular disease. She has had multiple stents. She came in February. They tried to stent her left leg again and were unsuccessful, and she ended up with an above-the- knee amputation. She had additional insults that included a STEMI, a pelvic clot that had to be removed, retroperitoneal hematoma, pneumothorax with a chest tube, but finally went to [facility] and there she developed a wound with gas gangrene, was brought back to [facility], put on Zosyn and vancomycin, which really did not slow her down, and hospice was consulted to focus on comfort care. PAST MEDICAL HISTORY: Pertinent for relatively severe hypertension, COPD, hyperlipidemia, peripheral vascular disease, GERD, and supraventricular tachycardia. ALLERGIES: INCLUDE IODINE, TAPE, AND KAOPECTATE. PAST SURGICAL HISTORY: She is status post many stents along with femoral-popliteal bypass, hysterectomy, ygyrh-[id number]-dgab amputation, and hemorrhoids. SOCIAL HISTORY: She quit smoking around age 59. No alcohol. 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 She was originally from [place]. She met her who was a truck hopper at [employer]. She has three children by a previous marriage. Current has been there for 27 years. No alcohol or illicits. FAMILY HISTORY: Positive for heart disease, peripheral vascular disease, diabetes, hypertension, hyperlipidemia. The patient is Yazidism. REVIEW OF SYSTEMS: The patient has been talking. She had been complaining of some pain and some agitation and anxiety. The nurses gave her some Ativan and now she is a bit obtunded. The pain was getting as high as 8 or 9. Since we have increased her GAS FITTER from 0.5 mg of morphine to 2, she is feeling better according to the family. PHYSICAL EXAMINATION: GENERAL: She is an obese, obtunded white female. VITAL SIGNS: 165/69, 16, 99, and 107. HEENT: Pupils are equal. NECK: There is a left carotid bruit noted. HEART: Rapid with no perceptible murmurs or gallops. LUNGS: Clear without rales, rhonchi, or wheezes. ABDOMEN: Obese, soft, appear tender, and she has bowel sounds. EXTREMITIES: Left leg is absent. NEURO: Cannot do neuro exam because of her obtundation. ASSESSMENT/PLAN: This 76-year-old female with severe peripheral vascular disease, has History And Physical [address] [address] NAME: ALENA GUERRIER : 38 STATUS : DIS IN [facility]#: [id number] AGE: 76 ADM/REG DATE : 03/17/17 MR#: [id number] REPORT SERV DATE: 03/29/17 DICTATED BY: NATHANAEL MANCILLA DATE: 03/18/17 REPORT STATUS : Draft TRANSCRIBED BY: EMI DATE: 03/18/17 developed gas gangrene. She is now DNR and comfort care. Antibiotics have been stopped and we are focusing only on comfort care. We have admitted her to [facility] to get her pain under better control. GP/MODL Nathanael Mancilla MD / [id number] CC: Nathanael Mancilla MD
--- NOTE | ~2017-03-17 | DS ---
Discharge Summary [facility] [address] [place]. [address] NAME: ALENA GUERRIER : 38 STATUS : DIS IN PAT#: [id number] AGE: 76 ADM/REG DATE : 03/17/17 MR#: [id number] REPORT SERV DATE: 04/01/17 DICTATED BY: NATHANAEL STONE DATE: 03/31/17 REPORT STATUS : Draft TRANSCRIBED BY: MODL DATE: 03/31/17 ADMISSION DATE: 03/17/2017 DISCHARGE DATE: 03/20/2017 A 76-year-old with a long history of peripheral vascular disease, stents, and eventually amputation. She developed gas gangrene and was felt not to be salvageable medically and goes to say may go to comfort care. Date of admission to hospice was 03/17/2017 after a fairly lengthy hospitalization at [facility] prior to that. The patient was having pain related to her gas gangrene and peripheral vascular disease. The antibiotics were stopped, and we were doing the morphine via BLENDER CONVEYOR OPERATOR and Ativan IV p.r.n. Most of her other medications were stopped. The patient actually rallied a little bit on the morphine drip, became more comfortable. After several days here at [facility], the decision was made to move her to the hospice care center, and this was done about 03/20/2017. FINAL DIAGNOSIS: Severe peripheral vascular disease with gas gangrene. DICTATED BY: Nathanael Stone MD GP/EMI Nathanael Stone MD / [id number] CC: MD Tian Crook M.D.
== END 2017-03-20 16:31 | disposition hospice, inpatient (51) | DRG 558 ==
LOC: 4EA 19:40
DX: M72.6 Necrotizing fasciitis (principal); Z89.612 Acquired absence of left leg above knee; Z66 Do not resuscitate; Z51.5 Encounter for palliative care; Z87.891 Personal history of nicotine dependence
CPT/HCPCS: 82962; 94640; A9270-GY; J0360; J2270; J2543; J2550; J2765; J3370